=== PATIENT | male | born 1965 | race Caucasian/White ===

== ENCOUNTER → 2017-11-16 17:36 | Outpatient (CLI) | payer SELFPAY ==
[2017-11-16 17:50] LABS: Absolute Lymphocyte Count 3.72 X10^3/ul (0.83-4.51); Absolute Neutrophil Count 7.7 X10^3/uL (2.0-7.7); Basophil# 0.04 X10^3/uL; Basophil% 0.3 % (0-1); Eosinophil# 0.59 X10^3/uL; Eosinophils% 4.5 % (0-5); Hematocrit 49.7 % (40-54); Hemoglobin 16.7 g/dl (13.0-16.5); Lymphocyte # 3.72 X10^3/ul (4.0); Lymphocyte % 28.1 % (19-41); Mean Corp Hgb Conc 33.6 g/gl (32-36); Mean Corpuscular Hgb 30.3 pg (27.0-32.0); Mean Platelet Vol. 10.7 fl (6.2-12.0); Monocyte# 1.15 X10^3/uL; Monocyte% 8.7 % (0-10); Neutrophil % 58.1 % (47-70); Platelet Count 264 K/mm3 (150-450); RBC Distribution Width CV 13.7 % (11.6-14.6); RBC Distribution Width SD 44.6 fl (35.1-43.9); Red Blood Count 5.52 M/mm3 (4.6-6.2); White Blood Count 13.2 K/mm3 (4.4-11.0)
[2017-11-16 17:55] LABS: POSITIVE COUNT NO; POSITIVE DIFFERENTIAL NO; POSITIVE MORPHOLOGY NO
[2017-11-16 18:43] LABS: AST(SGOT) 45 U/L (15-37); Alanine Aminotransfer ALT/SGPT 60 U/L (16-61); Albumin, Serum 3.8 g/dL (3.2-5.0); Alkaline Phosphatase 53 U/L (45-117); Anion Gap 6 (5-15); BUN 17 mg/dL (7-18); BUN/Creat Ratio 16.7 RATIO (10-20); Calcium,Total 9.1 mg/dL (8.5-10.1); Chloride 102 mmol/L (98-107); Creatinine, Serum 1.02 mg/dL (0.70-1.30); EST Glomerular Filtration Rate 81 mL/min (>60); Est Glom Filt Rate - Afr Amer 98 mL/min (>60); Globulin 3.8 g/dL (2.2-4.2); Glucose 107 mg/dL (74-106); Potassium 3.3 mmol/L (3.5-5.1); Protein, Total 7.6 g/dL (6.4-8.2); Sodium Level 141 mmol/L (136-145); Thyroid Stim Hormone (TSH) 5.43 uIU/mL (0.358-3.74)
[2017-11-18 11:17] LABS: Hep C Antibodies <0.1 s/co ratio (0.0-0.9)
== END ==
PROVIDERS: Family Provider Family Medicine Geriatric Medicine; PCP Family Medicine Geriatric Medicine; Visit Provider Family Medicine Geriatric Medicine
DX: I10 Essential (primary) hypertension (principal); Z13.89 Encounter for screening for other disorder
CPT/HCPCS: 36415; 80053; 84443; 85025; 86803

== ENCOUNTER → 2018-06-01 16:26 | Outpatient (CLI) | payer SELFPAY ==
[2018-06-01 18:09] LABS: Hematocrit 47.9 % (40-54); Hemoglobin 16.3 g/dl (13.0-16.5); Mean Corpuscular Volume 90.5 fL (80-94); Red Blood Count 5.29 M/mm3 (4.6-6.2); White Blood Count 12.3 K/mm3 (4.4-11.0)
[2018-06-01 18:10] LABS: Absolute Lymphocyte Count 3.89 X10^3/ul (0.83-4.51); Absolute Neutrophil Count 6.5 X10^3/uL (2.0-7.7); Basophil# 0.04 X10^3/uL; Basophil% 0.3 % (0-1); Eosinophil# 0.69 X10^3/uL; Eosinophils% 5.6 % (0-5); Lymphocyte # 3.89 X10^3/ul (4.0); Lymphocyte % 31.6 % (19-41); Mean Corpuscular Hgb 30.8 pg (27.0-32.0); Mean Platelet Vol. 11.5 fl (6.2-12.0); Monocyte# 1.13 X10^3/uL; Monocyte% 9.2 % (0-10); Neutrophil # 6.52 X10^3/uL (2.7-7.7); POSITIVE COUNT NO; POSITIVE DIFFERENTIAL NO; POSITIVE MORPHOLOGY NO; Platelet Count 291 K/mm3 (150-450); RBC Distribution Width SD 46.5 fl (35.1-43.9)
[2018-06-01 18:48] LABS: AST(SGOT) 47 U/L (15-37); Alanine Aminotransfer ALT/SGPT 72 U/L (16-61); Albumin, Serum 3.6 g/dL (3.2-5.0); Alkaline Phosphatase 59 U/L (45-117); Anion Gap 9 (5-15); BUN 18 mg/dL (7-18); BUN/Creat Ratio 15.5 RATIO (10-20); Calcium,Total 9.2 mg/dL (8.5-10.1); Chloride 100 mmol/L (98-107); Creatinine, Serum 1.16 mg/dL (0.70-1.30); EST Glomerular Filtration Rate 69 mL/min (>60); Est Glom Filt Rate - Afr Amer 84 mL/min (>60); Globulin 3.6 g/dL (2.2-4.2); Glucose 162 mg/dL (74-106); Potassium 3.1 mmol/L (3.5-5.1); Protein, Total 7.2 g/dL (6.4-8.2); Sodium Level 141 mmol/L (136-145)
[2018-06-02 09:42] LABS: Hemoglobin A1c 6.8 % (4.2-6.3)
== END ==
PROVIDERS: Family Provider Family Medicine Geriatric Medicine; PCP Family Medicine Geriatric Medicine; Visit Provider Family Medicine Geriatric Medicine
DX: I10 Essential (primary) hypertension (principal); E16.2 Hypoglycemia, unspecified
CPT/HCPCS: 36415; 80053; 83036; 84443; 85025

== ENCOUNTER → 2019-01-17 10:02 | Outpatient (CLI) | payer SELFPAY ==
[2019-01-17 17:10] LABS: Absolute Lymphocyte Count 3.28 X10^3/ul (0.83-4.51); Absolute Neutrophil Count 7.3 X10^3/uL (2.0-7.7); Basophil# 0.03 X10^3/uL; Basophil% 0.2 % (0-1); Eosinophil# 0.54 X10^3/uL; Eosinophils% 4.4 % (0-5); Hematocrit 46.5 % (40-54); Hemoglobin 15.8 g/dl (13.0-16.5); Lymphocyte # 3.28 X10^3/ul (4.0); Lymphocyte % 26.9 % (19-41); Mean Corpuscular Hgb 30.4 pg (27.0-32.0); Mean Corpuscular Volume 89.6 fL (80-94); Mean Platelet Vol. 10.4 fl (6.2-12.0); Monocyte# 1.03 X10^3/uL; Monocyte% 8.5 % (0-10); Neutrophil # 7.27 X10^3/uL (2.7-7.7); Neutrophil % 59.8 % (47-70); Platelet Count 340 K/mm3 (150-450); RBC Distribution Width CV 13.8 % (11.6-14.6); Red Blood Count 5.19 M/mm3 (4.6-6.2); White Blood Count 12.2 K/mm3 (4.4-11.0)
[2019-01-17 17:17] LABS: POSITIVE COUNT NO; POSITIVE DIFFERENTIAL NO; POSITIVE MORPHOLOGY NO
[2019-01-17 17:52] LABS: ALB/GLOB Ratio 0.9 RATIO (0.9-2.4); AST(SGOT) 34 U/L (15-37); Alanine Aminotransfer ALT/SGPT 54 U/L (16-61); Albumin, Serum 3.5 g/dL (3.2-5.0); Alkaline Phosphatase 61 U/L (45-117); Anion Gap 3 (5-15); BUN 14 mg/dL (7-18); BUN/Creat Ratio 14.2 RATIO (10-20); Calcium,Total 9.2 mg/dL (8.5-10.1); Chloride 103 mmol/L (98-107); Creatinine, Serum 0.98 mg/dL (0.70-1.30); EST Glomerular Filtration Rate 84 mL/min (>60); Est Glom Filt Rate - Afr Amer 101 mL/min (>60); Globulin 3.8 g/dL (2.2-4.2); Glucose 138 mg/dL (74-106); Protein, Total 7.3 g/dL (6.4-8.2); Sodium Level 139 mmol/L (136-145); Thyroid Stim Hormone (TSH) 2.46 uIU/mL (0.358-3.74)
== END ==
PROVIDERS: Family Provider Family Medicine Geriatric Medicine; PCP Family Medicine Geriatric Medicine; Visit Provider Family Medicine Geriatric Medicine
DX: I10 Essential (primary) hypertension (principal)
CPT/HCPCS: 36415; 80053; 84443; 85025

== ENCOUNTER 2019-03-16 19:15 | Emergency (ER) | payer SELFPAY ==
[2019-03-16 19:16] VITALS: BP 163/108; PULSE 75; RESP 16; TEMP 36.6; O2SAT 98; BMI 34.7
[2019-03-16 20:19] LABS: Bacteria 0 SEEN /hpf (None Seen); Mucous, Urine 0 SEEN /hpf (<or=2+); Squamous Epithelial Cells - UA 0 SEEN /hpf (0-5)
--- NOTE | 2019-03-16 20:23 | ED.VIS.GEN ---
History of Present Illness Chief Complaint: Complaint Informant: Patient, Significant Other Onset: Today Context: Sudden Onset Timing: Continuous Quality: Pain and inability to urinate Location: Suprapubic Current Severity: Moderate Maximum Severity: Severe Worsened by: Palpation Relieved by: Nothing Associated Symptoms: Inability to urinate x8 hours Narrative: Patient is a 53-year-old male presents with inability to urinate for the past 8 hours. He had problems in the past with stream. He denies history of BPH. He denies hematuria. He states he had slight discomfort this morning. He denies fever, chills night sweats. He denies nausea, vomiting diarrhea. He does have history of hypertension. He denies prior history. Prior similar symptoms: No Recent Illness/Hospitalization: No - Past Medical History (1) History of hypertension Status: Acute (2) History of hypercholesterolemia Status: Acute Past Medical History - Allergies and Home Meds Allergies/Adverse Reactions: Allergies No Known Allergies Allergy (Verified 03/16/19 19:18) Primary Care Physician: Florencio Leger Chi, MD [Primary Care Provider] - Prior records reviewed: Yes Surgical History: no surgical history Lives: Spouse/ Significant Other Smoking Status: Unknown if ever smoked Alcohol: None Drugs: None Review of Systems General: Denies: Chills, Fever, Malaise, Sweats Cardiovascular: Denies: Chest pain, Palpitations Respiratory: Denies: Dyspnea, Cough, Dyspnea on exertion Gastrointestinal: Reports: Abdominal pain. Denies: Nausea, Vomiting, Diarrhea, Constipation, Melena, Hematochezia, -, - Genitourinary: Reports: Dysuria. Denies: Hematuria, Frequency Musculoskeletal: Denies: Myalgias, Arthralgias, Neck pain, Back pain, Swelling, Extremity Pain, -, - Skin: Denies: Rash, Wounds Hematologic: Denies: Easy bruising, Easy bleeding, Lymphadenopathy, -, - Allergy: Denies: Uticaria, Swelling of the mouth, Swelling of the tongue, -, - Physical Exam Vital Signs/Narrative: Vital Signs Temp Pulse Resp BP Pulse Ox 03/16/19 19:16 97.8 F 75 16 163/108 H 98 Inital Vital Signs reviewed: Yes General: Well nourished, Well developed, Acute Distress Head: Normocephalic, Atraumatic Eyes: Perrl, EOMI. Negative for: Pale conjunctiva, Scleral icterus, - ENT: Moist mucous membranes, No rhinorrhea Neck: Supple, Nontender Cardiovascular: Regular rate, Regular rhythm, No murmurs Respiratory: No distress, CTA bilaterally, Chest nontender Abdomen: Soft, Nondistended, Normal bowel sounds, Tender, Mass - Distended palpable urinary bladder. Negative for: No masses Back: Nontender, Normal Inspection Extremities: Nontender, No edema Skin: Normal color, No rash, No Trauma. Negative for: Cyanosis, Diaphoresis, Jaundice Neurological: Alert, Oriented x3, Cranial nerves II-XII grossly intact, Normal Strength, Normal Sensation Psychological: Normal affect, Normal Mood Diagnostic/Tx/Re-eval Laboratory Results 03/16/19 03/16/19 19:50 20:05 Sodium 142 Potassium 3.4 L Chloride 103 Carbon Dioxide 31.0 Anion Gap 8 BUN 14 Creatinine 1.07 Estim Creat Clear Calc 80.54 Est GFR (MDRD) Af Amer 92 Est GFR (MDRD) Non-Af 76 BUN/Creatinine Ratio 13.1 Glucose 125 H Calcium 9.4 Urine Color Yellow Urine Clarity Clear Urine pH 7.0 Ur Specific [place] 1.010 Urine Protein 100 H Urine Glucose (UA) Normal Urine Ketones Negative Urine Occult Blood Negative Urine Nitrite Negative Urine Bilirubin Negative Urine Urobilinogen Normal Ur Leukocyte Esterase Negative Urine RBC 0-5 SEEN Urine WBC 0-5 SEEN Ur Squamous Epith Cells 0 SEEN Urine Bacteria 0 SEEN Urine Mucus 0 SEEN - Medical Decision Making Patient has a distended bladder. Crane was placed with significant amount of urine. Basic metabolic panel was obtained to assess for renal injury. UA was obtained to rule out infection since he complained of dysuria this morning. No evidence of acute kidney injury. Urine is unremarkable. He was discharged with leg bag, prescription for Flomax and referral to urology. ED Disposition - Plan for ED Patient: Disposition: Home or Assisted Living Diagnosis: Acute urinary retention Instructions: URINARY RETENTION, Male Prescriptions: Tamsulosin HCl [Flomax] 0.4 mg PO QHS #30 cap.er.24h Prescription Printed Referrals: Florencio Leger Chi, MD [Primary Care Provider] - Feroz Dillon MD [STAFF PHYSICIAN] - 3-5 Days
[2019-03-16 20:24] LABS: Color, Urine Yellow (Yellow); Glucose, Dipstick Normal (Normal); Ketone-Dipstick Negative (Negative); Leukocyte Esterase-Dipstick Negative /ul (Negative); Nitrite-Dipstick Negative (Negative); Occult Blood-Urine Negative /ul (Negative); Protein-Dipstick 100 mg/dl (Negative); Urine Bilirubin Dipstick Negative (Negative); Urine Clarity Clear (Clear); Urine Urobilinogen Normal (Normal)
[2019-03-16 20:26] LABS: Anion Gap 8 (5-15); BUN 14 mg/dL (7-18); BUN/Creat Ratio 13.1 RATIO (10-20); Calcium,Total 9.4 mg/dL (8.5-10.1); Chloride 103 mmol/L (98-107); Creatinine, Serum 1.07 mg/dL (0.70-1.30); EST Glomerular Filtration Rate 76 mL/min (>60); Est Glom Filt Rate - Afr Amer 92 mL/min (>60); Estimated Creatinine Clearance 80.54 ml/min; Glucose 125 mg/dL (74-106); Potassium 3.4 mmol/L (3.5-5.1); Sodium Level 142 mmol/L (136-145)
[2019-03-16 20:32] LABS: Red Blood Cells-Urine 0-5 SEEN /hpf (0-5); White Blood Cells 0-5 SEEN /hpf (0-5)
[2019-03-16 22:00] VITALS: BP 145/98; PULSE 77; RESP 16; O2SAT 94
[2019-03-16 22:06] VITALS: BP 145/98; PULSE 77; RESP 16; O2SAT 94
== END 2019-03-16 22:18 | disposition home or self-care (01) ==
PROVIDERS: Emergency Provider Emergency Medicine; Family Provider Family Medicine Geriatric Medicine; PCP Family Medicine Geriatric Medicine
DX: R33.9 Retention of urine, unspecified (principal); N32.89 Other specified disorders of bladder; I10 Essential (primary) hypertension; E78.00 Pure hypercholesterolemia, unspecified
CPT/HCPCS: 51702; 80048; 81001; 99283; A4216

== ENCOUNTER → 2019-03-19 14:00 | Outpatient (CLI) | payer SELFPAY ==
[2019-03-16 19:16] VITALS: BMI 34.7
== END ==
PROVIDERS: Family Provider Family Medicine Geriatric Medicine; PCP Family Medicine Geriatric Medicine; Referring Provider Urology; Visit Provider Urology
DX: N40.1 Benign prostatic hyperplasia with lower urinary tract symptoms (principal); R33.9 Retention of urine, unspecified
CPT/HCPCS: 36415; 84153

== ENCOUNTER 2019-04-07 20:25 | Emergency (ER) | payer SELFPAY ==
[2019-04-04 09:08] VITALS: BMI 34.3
[2019-04-07 20:26] VITALS: BP 163/75; PULSE 113; RESP 18; TEMP 37.3; O2SAT 99; BMI 33.9
[2019-04-07 20:45] VITALS: BP 163/75; PULSE 113; RESP 18; TEMP 37.3; O2SAT 99
[2019-04-07] MEDS: Phenazopyridine 95 MG Tablet 190 MG PO (20:53)
[2019-04-07 21:18] LABS: Color, Urine Yellow (Yellow); Glucose, Dipstick Normal (Normal); Ketone-Dipstick Negative (Negative); Leukocyte Esterase-Dipstick 500 /ul (Negative); Nitrite-Dipstick Positive (Negative); Occult Blood-Urine 150 /ul (Negative); Protein-Dipstick 30 mg/dl (Negative); Specific Gravity, Urine 1.015 (1.002-1.030); Urine Bilirubin Dipstick Negative (Negative); Urine Clarity Clear (Clear); Urine Urobilinogen 1 mg/dl (Normal); Urine pH 6.5 (5.0 - 8.0)
[2019-04-07 21:24] LABS: White Blood Cells >100 SEEN /hpf (0-5)
[2019-04-07 21:28] LABS: Red Blood Cells-Urine 25-50 SEEN /hpf (0-5)
[2019-04-07 21:29] LABS: Bacteria 2+ /hpf (None Seen); Mucous, Urine RARE /hpf (<or=2+); Squamous Epithelial Cells - UA 0-5 SEEN /hpf (0-5)
--- NOTE | 2019-04-07 21:45 | ED.VISSUMM ---
- ER Visit Summary Date of Service: 04/07/19 Chief Complaint: [Penile pain] History of Present Illness: The patient is a 53 M [resents to the emergency department with discomfort in his penis started yesterday. Patient feels like when he has to void through his Crane catheter there is a sharp pain and burning associated with it. Patient had an indwelling Crane catheter since March 16 for urinary retention. Patient is scheduled next week to have a TURP with . Patient at times is noted small amount of blood at the tip of the penis. He denies any fever. Denies nausea or vomiting. Currently he has no pain. Medical history includes hypertension and high cholesterol as well as hypothyroidism.] Physical Examination: [HEENT-PERRLA, EOMI. Cranial nerves II through XII grossly intact. TMs clear. Mucous membranes moist. No adenopathy. Cardiovascular-regular rate and rhythm without murmur or ectopy Lungs-clear to auscultation, chest wall stable without crepitus or subcu emphysema Abdomen-normoactive bowel sounds, soft, nontender, no rebound or rigidity, no peritoneal signs. exam-patient is a circumcised male with a Crane catheter in place. No evidence of erosion of the catheter into the urethral meatus. There is small amount of blood noted in his underwear but no blood noted coming from the urethral meatus at this time. Extremities-intact ?4, normal range of motion, normal pulses, atraumatic] Test Results: [Urinalysis obtained showed 500 leukocyte esterase as well as greater than 100 WBCs and 25-50 RBCs as well as +2 bacteria.] Emergency Department Course and Treatment: [Was medicated with Bactrim and Pyridium. Case was discussed with patient's urologist who asked that patient be treated with 7 days worth of Bactrim.] Treatment Plan: [Treat with Bactrim and Pyridium and have patient follow-up with his urologist. Advised to return if fever, vomiting, or conditions worsen anyway.] Disposition: [Discharged home stable condition.] Impression: [Urinary tract infection] This note was generated with Autotether[employer] software. It may contain incorrect words, spelling, and punctuation that were not noted in review of the chart prior to signing ED Disposition - Plan for ED Patient: Referrals: Florencio Leger Chi, MD [Primary Care Provider] -
--- NOTE | 2019-04-07 21:48 | ED.DEP ---
ED Disposition - Plan for ED Patient: Instructions: Bladder Infection, Male (Adult) Prescriptions: Smz/Tmp Ds [Bactrim Ds] 1 tab PO BID #14 tab Prescription Printed Phenazopyridine HCl [Pyridium] 200 mg PO BID PRN PRN #10 tab PRN Reason: Pain Prescription Printed Referrals: Florencio Leger Chi, MD [Primary Care Provider] - Feroz Dillon MD [STAFF PHYSICIAN] - 3-5 Days
[2019-04-07 22:01] VITALS: BP 157/97; PULSE 100; RESP 18; O2SAT 96
[2019-04-07] MEDS: Smz/Tmp Ds Tablet 1 TABLET PO (22:01)
== END 2019-04-07 22:03 | disposition home or self-care (01) ==
LOC: ED 20:49
PROVIDERS: Emergency Provider Emergency Medicine; Family Provider Family Medicine Geriatric Medicine; PCP Family Medicine Geriatric Medicine
DX: N39.0 Urinary tract infection, site not specified (principal); I10 Essential (primary) hypertension; E03.9 Hypothyroidism, unspecified; E78.00 Pure hypercholesterolemia, unspecified; Z72.0 Tobacco use
CPT/HCPCS: 81001; 87077; 87086; 87088; 87186; 99283

== ENCOUNTER 2019-04-11 08:04 | Day surgery (SDC) | payer SELFPAY ==
[2019-04-04 09:08] VITALS: BP 145/103; PULSE 79; RESP 16; TEMP 36.4; O2SAT 97; BMI 34.3
--- NOTE | 2019-04-04 09:16 | SDCEKG_ITS ---
Test Reason : Blood Pressure : / mmHG Vent. Rate : 073 BPM Atrial Rate : 073 BPM P-R Int : 212 ms QRS Dur : 096 ms QT Int : 388 ms P-R-T Axes : 042 -24 026 degrees QTc Int : 427 ms Sinus rhythm with 1st degree A-V block Otherwise normal ECG Confirmed by LA NENA ROY ([id number]), newspaper managing editor PEDRO BARRETO ([id number]) on 04/10/2019 10:16:28 AM Referred By: Feroz Dillon Confirmed By:LA NENA ROY
[2019-04-11] VITALS (12 sets, daily range): BP systolic 115–154; BP diastolic 74–104; PULSE 67–76; RESP 14–18; TEMP 36.3–37.2; O2SAT 92–99; BMI 34.3
--- NOTE | 2019-04-11 | IMM_PTH ---
PATIENT: STEPHANIE MOREL Jr. LOC: [facility] [place] U#:[id number] AGE/SX: 53/M ROOM: RE04/11/[address]: Dr. Feroz Dillon MD : 1965 BED: DIS: 04/12/2019 SPEC #: [id number] RECD: 04/13/19 11:24 STATUS: BRONWYN REQ #: [id number] DANIAL: 04/11/19 00:[address]: Feroz Dillon DEPT: IMMUNOHISTOCHEMISTRY RECD BY: Jordyn Hutchinson ENTERED: 04/13/19 11:26 SP TYPE: IMMUNO OTHR DR: Dr. Florencio Leger MD Tissues: A - Prostate, NOS B - PROSTATE BIOPSY Procedures: Synapto (add) CD56 (add) CHROMO (add) CK8 (add) 34BE12 (add) Pankeratin (initial) P40 (add) PHYSICIAN & INSTITUTION [place] [address] SPECIMEN INFORMATION: Tissue Source: A - Prostate chips, B - Prostate biopsy Clinical Info: Urinary retention, nodular prostate, elevated PSA Specimen Number: [id number] A9 & B CPT code: 33310 x2, 63789 x12 METHODOLOGY: Deparaffinized sections of prefer/formalin-fixed tissue or PAP/DQ stained slides are incubated with monoclonal/polyclonal antibodies/oligonucleotide probes. Localization is made via biotin free immunoperoxidase method. Appropriate controls are performed and reacted as expected. Results on target cell population are indicated in the following table: RESULTS: ANTIBODY / CLONE RESULT Block A9 AE1-3 (AE1/AE3/PCK26) positive CK8 (08vdorG94) positive P40 (BC28) negative 34BE12 (34BE12) negative Chromo (LK2H10) negative Synapto (polyclonal) negative CD56 (123C3.D5) negative Block B AE1-3 (AE1/AE3/PCK26) positive CK8 (06cmbyF33) positive P40 (BC28) negative 34BE12 (34BE12) negative Chromo (LK2H10) negative Synapto (polyclonal) negative CD56 (123C3.D5) negative These tests were developed and their performance characteristics determined by [facility]. They may not have been cleared or approved by the U.S. Food and Drug Administration. The FDA has determined that such clearance or approval is not necessary. INTERPRETATION: A. Prostate chips, TUR: Poorly differentiated prostatic adenocarcinoma. Negative for neuroendocrine differentiation. B. Prostate, biopsy: Poorly differentiated prostatic adenocarcinoma. Negative for neuroendocrine differentiation. SJ:lucius 04/13/19 Case has been reviewed in consultation with Dr. Cerda who concurs with the above diagnosis. IDC:AM
[2019-04-11 08:46] LABS: Bedside Glucose 144 mg/dL (70-110)
[2019-04-11] MEDS: Lactated Ringers 1,000 ML 100 ML IV ×2 (08:49→11:16)
--- NOTE | 2019-04-11 10:10 | PROS_PTH ---
PATIENT: STEPHANIE MOREL Jr. LOC: [facility] [place] U#:[id number] AGE/SX: 53/M ROOM: RE04/11/[address]: Dr. Feroz Dillon MD : 1965 BED: DIS: 04/12/2019 SPEC #: [id number] RECD: 04/11/19 14:27 STATUS: BRONWYN [place] #: [id number] DANIAL: 04/11/19 10:[address]: Feroz Dillon DEPT: SURGICAL PATHOLOGY RECD BY: Fabrizio Cid ENTERED: 04/11/19 14:55 SP TYPE: TURP OTHR DR: Dr. Florencio Leger MD Tissues: A - Prostate, NOS B - PROSTATE BIOPSY Procedures: Surgery Specimen Level IV HEADER OPERATION: Cysto, TUR prostate, Olympus, transrectal finger-guided prostate biopsy PRE-OP DIAGNOSIS: Retention of urine, nodular prostate with lower urinary tract symptoms; elevated prostate specific antigen TISSUE SUBMITTED: A - Prostate chips, B - Prostate biopsy MICROSCOPIC DIAGNOSIS A. Prostate chips, TUR: Prostatic adenocarcinoma. Benign prostatic hyperplasia predominantly stromal type. Diffuse moderate chronic inflammation and minimal acute inflammation. See cancer summary below. B. Prostate, core biopsy: Prostatic adenocarcinoma: Nakul grade: 5+5=10 Number of cores involved: 3/3 Proportion of tissue involved: ~30% Perineural invasion: Present, focal. Greatest tumor length: 1 cm Focal high-grade prostatic intraepithelial neoplasia (HGPIN). Diffuse moderate chronic inflammation. See comment. SJ:lucius 04/12/19 PROSTATE CANCER (TUR) SUMMARY: (Specimen A) Procedure - transurethral prostatic resection Specimen weight - 25.5 gm Histologic type - adenocarcinoma Histologic grade ([place] Pattern): Primary (predominant) pattern - 5 Secondary (worst remaining) pattern - 5 Total Nakul score - 10 Tumor Quantitation (TUR specimens): Proportion (%) of prostatic tissue involved by tumor - <5% Tumor incidental histologic findings with Nakul score 7 to 10 (cT1b). Number of positive chips - 5 Total number of chips - 500 Periprostatic fat invasion - not applicalble Seminal vesicle invasion - not applicable Lymph-Vascular invasion - not identified Perineural invasion - not identified Additional pathologic findings - benign prostatic hyperplasia, predominantly stromal type. - Diffuse moderate chronic inflammation and minimal acute inflammation. The above summary is in compliance with [employer] [place] (CAP) Cancer Protocols Checklist and [place] Joint Committee on Cancer (AJCC), Staging Manual, 8th Ed. COMMENT A & B. Immunohistochemistry ([id number]) supports the above diagnosis. Case has been reviewed in consultation with Dr. Cerda who concurs with the above diagnosis. IDC:AM MICROSCOPIC DESCRIPTION Slides are reviewed. GROSS DESCRIPTION A - Received is one container labeled with the patient's name and designated prostate chips. The specimen consists of multiple irregular fragments of pink-monroy, rubbery, soft tissue that in aggregate weigh 25.5 gm and measure in aggregate 7 x 7 x 3 cm. Foundation Engineer tissue is submitted in 12 cassettes. / SJ:lucius 04/11/19 The rest of the specimen is submitted in 12 more cassettes, -. / ROBERTO:lucius 04/12/19 B - Received in fixative is one container labeled with the patient's name and designated prostate biopsy. The specimen consists of three elongated fragments of light monroy-white soft tissue measuring 1 to 2 cm in length and 0.1 cm in diameter. The specimen is totally submitted in one cassette. / SJ:lucius 04/11/19 TC:0 CPT: 64185 x2 ADDENDUM ADDENDUM ADDENDUM ADDENDUM ADDENDUM ADDENDUM ADDENDUM ADDENDUM ADDENDUM ADDENDUM ADDENDUM ADDENDUM ADDENDUM ADDENDUM ADDENDUM ADDENDUM ADDENDUM ADDENDUM ADDENDUM ADDENDUM ADDENDUM 12/10/2021 09:54 ADDENDUM 12/10/2021 09:54 ADDENDUM 12/10/2021 09:54 ADDENDUM 12/10/2021 09:54 ADDENDUM 12/10/2021 09:54 [facility]PORT FROM [facility] RESULT SUMMARY: Abnormal IMMUNOTHERAPY BIOMARKERS: Tumor Mutation Zenda: Low (3.2 Mutations / MB) Microsatellite Instability: MSI Negative PERTINENT NEGATIVE RESULTS: The following genes are NEGATIVE for clinically relevant mutations. Mutational hotspots and surrounding exonic regions were interrogated for DNA level point mutations and indels (fusions not assayed). AR, ARID1A, ATR, BARD1, BRCA1, BRCA2, BRIP1, CDK12, CHEK1, CHEK2, EPCAM, JAF750J, FANCA, FANCL, GEN1, HOXB13, MLH1, MRE11A, MSH2, MSH6, MUTYH, NBN, NTRK1, PALB2, PMS2, EDE9K2H, PTEN, RAD51B, RAD51C, RAD51D, RAD54L, TERT PD-L1 ([employer]) IMMUNOHISTOCHEMICAL ANALYSIS FROM [employer] Test cancelled due to insufficient tumor cells. Please see complete report in e-chart or EMR
[2019-04-11] MEDS: Cefazolin 2 GM in 0.9% Normal Saline 100 ML IV (10:14)
--- NOTE | 2019-04-11 12:08 | DCINST_ITS ---
Discharge Diet: Light diet - advance as tolerated Discharge Activity: Return to Normal Activity, May not drive while taking narcotic pain medications. Call your doctor if your incision/area has: Continuous Slow Oozing, Sudden Increased Bleeding, Increased Pain/ Swelling, Increased Redness, Foul Smelling Discharge, Swelling at the incision site Call your doctor if you observe: Fever of 101 or Higher Suture Line Care: Avoid Pulling/Pushing, Avoid Pinching/Bending Instructions: Transurethral Resection of the Prostate (TURP): Home Recovery Allergies/Adverse Reactions: Allergies No Known Allergies Allergy (Verified 04/11/19 08:22) Medications to take at Discharge Tamsulosin HCl [Flomax] 0.4 mg PO QHS #30 cap.er.24h 03/16/19 Aspirin [Aspir 81] 81 mg PO DAILY 04/04/19 Atenolol [Tenormin (Beta Manpreet)] 50 mg PO DAILY 04/04/19 Atorvastatin Calcium [Lipitor] 40 mg PO QHS 04/04/19 Chlorthalidone 25 mg PO DAILY 04/04/19 Levothyroxine Sodium [Synthroid] 50 mcg PO QHS 04/04/19 Multivitamin [Multiple Vitamins] 1 ea PO QHS 04/04/19 Potassium Chloride [K-Dur] 20 meq PO QHS 04/04/19 Phenazopyridine HCl [Pyridium] 200 mg PO BID PRN PRN #10 tab 04/07/19 Smz/Tmp Ds [Bactrim Ds] 1 tab PO BID #14 tab 04/07/19 Ciprofloxacin [Cipro] 500 mg PO BID #14 tab 04/11/19 Hydrocodone/Acetaminophen [[place] 5-325 Tablet] 1 ea PO Q4H PRN PRN #14 tab 04/11/19 The following prescriptions were given: Ciprofloxacin [Cipro] 500 mg PO BID #14 tab Prescription Printed Hydrocodone/Acetaminophen [[place] 5-325 Tablet] 1 ea PO Q4H PRN PRN #14 tab PRN Reason: Pain Prescription Printed Orders to be completed after discharge: Hemoglobin A1c Time Frame: 04/04/19, Facility: [facility] [place], Location: Laboratory Primary Care Physician: Florencio Leger Chi, MD [Primary Care Provider] - Test Results: Test results from this visit will be discussed in further detail at your follow- up appointment, if applicable. Please Follow Up With: Feroz Dillon MD When: in 2 weeks, please call to make an appointment.
--- NOTE | 2019-04-11 12:12 | PCM.OPRPT ---
Report of Operation Date of Procedure: 04/11/19 Pre-Operative Diagnosis: BPH with urinary retention prostate nodule Post-Operative Diagnosis: The same Surgery/Procedure Performed:: Transurethral resection of the prostate, transrectal prostate biopsy Description of Surgical Findings:: 53-year-old male who developed urinary retention on examination is a firm prostate concerning for cancer he is not been able to urinate on his own despite voiding trial the medical therapy so today we will proceed with a transurethral resection of the prostate and also do a prostate biopsy 53-year-old male taken back to the operating room after smooth induction of anesthesia he was placed in dorsolithotomy position, penis and testicles are prepped and draped in usual sterile fashion, I first looked in with a 21 Romanian rigid cystourethroscope found the entire length of the urethra is normal no scar tissues or abnormalities, sphincter was intact, verumontanum was identified, he had bilateral hypertrophy and a somewhat of median lobe, he did have bilateral hypertrophy, I then switched over to the 26 Romanian continuous flow resectoscope I first identified the right and left ureteral orifice I first resected the median lobe and made sure that the ureteral orifices were uninjured which they were not identified after resection they were clearly uninvolved purely I then resected back to the verumontanum marked out my attention edges of the resection of the ureter all the way up circumferentially and the limit my resection to down to the room and the sphincter I then started resecting the obstructive tissue on the left side appeared to be a little bit of tissue initially but then as a Resecting I Got More and More Tissue Ended up Doing a Significant Resection on the Left Side. I Then Went to the Right Side and Continue with the Resection of the Right Side I Then Very Carefully Resected the Roof of the prostate. I then took out the 26 Romanian continuous-flow resectoscope I put into just a 24 Romanian noncontinuous flow resectoscope in order to resect the apical tissue at the resecting this there was some apical tissue draping down from the top is still causing obstruction I resected this and finally I resected a nice wide open channel to the flow test had a really nice flow sphincter was intact. I then did a flow test had a wide open flow looked at the sphincter the sphincter was intact all the chips were Ellik out of the bladder but it three-way catheter in the bladder and continuous irrigation the urine was nice and clear. I then double gloved and did a digital exam he had a very firm rockhard prostate we did 3 biopsies of the prostate and these were sent off as a separate biopsy this of his finger guided prostate biopsy using a biopsy gun. Patient anesthetic is being reversed taken back to PACU in good condition. Type of Anesthesia:: General Drains: 3 way swain - Admit VTE Documentation VTE Present on Admission: No VTE Mechan Device Prophylaxis: SCD's
[2019-04-11 12:40] LABS: Bedside Glucose 136 mg/dL (70-110)
[2019-04-11] MEDS: 0.9% Normal Saline 1,000 ML 75 ML IV (14:57)
[2019-04-11] MEDS: Ciprofloxacin 400 MG/200 ML BAG 200 MG IV (18:31)
[2019-04-11] MEDS: oxyCODONE 5 MG Tablet PO (21:22)
[2019-04-12 03:12] VITALS: BP 115/78; PULSE 68; RESP 18; TEMP 36.6; O2SAT 97
[2019-04-12] MEDS: 0.9% Normal Saline 1,000 ML 75 ML IV (05:29)
[2019-04-12] MEDS: Ciprofloxacin 400 MG/200 ML BAG 200 MG IV (05:30)
[2019-04-12] MEDS: oxyCODONE 5 MG Tablet PO (05:35)
[2019-04-12 07:45] VITALS: BP 115/84; PULSE 70; RESP 16; TEMP 36.7; O2SAT 98
[2019-04-12] MEDS: Atenolol 50 MG Tablet PO (08:07)
[2019-04-12] MEDS: Tamsulosin HCl 0.4 MG Capsule PO (08:07)
[2019-04-12] MEDS: Pantoprazole Sodium 40 MG Tablet PO (08:07)
[2019-04-12] MEDS: Levothyroxine 50 MCG Tablet PO (08:10)
[2019-04-12] MEDS: Docusate Sodium 100 MG Capsule PO (08:11)
[2019-04-12] MEDS: Multivitamins,Therapeutic Tablet 1 TABLET PO (08:11)
[2019-04-12] MEDS: Chlorthalidone 50 MG Tablet 25 MG PO (12:42)
[2019-04-12 14:30] VITALS: BP 165/92; PULSE 76; RESP 16; TEMP 36.6; O2SAT 97
== END 2019-04-12 14:47 | disposition home or self-care (01) ==
LOC: SDC 08:05 → AC 08:23 → MS3 11:18
PROVIDERS: Family Provider Family Medicine Geriatric Medicine; PCP Family Medicine Geriatric Medicine; Referring Provider Urology; Visit Provider Urology
PROC: (CPT 52630; principal; 2019-04-11 10:00)
DX: C61 Malignant neoplasm of prostate (principal); N40.1 Benign prostatic hyperplasia with lower urinary tract symptoms; N40.2 Nodular prostate without lower urinary tract symptoms; R33.8 Other retention of urine; I10 Essential (primary) hypertension; E03.9 Hypothyroidism, unspecified; E11.9 Type 2 diabetes mellitus without complications; F32.9 Major depressive disorder, single episode, unspecified; F17.210 Nicotine dependence, cigarettes, uncomplicated
CPT/HCPCS: 00914; 52630; 36415; 82962; 83036; 88305; 88341; 88342; 93005; 94762; 99406; J7030; J7120; J0744; J2405

== ENCOUNTER → 2019-04-23 13:52 | Outpatient (CLI) | payer SELFPAY ==
[2019-04-11 14:15] VITALS: BMI 34.3
[2019-04-23 17:12] LABS: Absolute Lymphocyte Count 3.39 X10^3/uL (0.83-4.51); Absolute Neutrophil Count 7.6 X10^3/uL (2.0-7.7); Basophil# 0.09 X10^3/uL; Basophil% 0.7 % (0-1); Eosinophil# 0.85 X10^3/uL; Eosinophils% 6.5 % (0-5); Hematocrit 41.9 % (40-54); Hemoglobin 13.7 g/dL (13.0-16.5); Lymphocyte # 3.39 X10^3/ul (4.0); Mean Corp Hgb Conc 32.7 g/dL (32-36); Mean Corpuscular Volume 88.6 fL (80-94); Mean Platelet Vol. 10.2 fl (6.2-12.0); Monocyte# 1.07 X10^3/uL; Monocyte% 8.2 % (0-10); NRBC Flagged by Analyzer 0 % (0-5); Neutrophil # 7.57 X10^3/uL (2.7-7.7); Neutrophil % 58.1 % (47-70); Platelet Count 405 K/mm3 (150-450); RBC Distribution Width CV 13.7 % (11.6-14.6); RBC Distribution Width SD 44.1 fl (35.1-43.9); Red Blood Count 4.73 M/mm3 (4.6-6.2)
[2019-04-23 17:40] LABS: ALB/GLOB Ratio 0.8 RATIO (0.9-2.4); AST(SGOT) 20 U/L (15-37); Alanine Aminotransfer ALT/SGPT 36 U/L (16-61); Albumin, Serum 3.2 g/dL (3.2-5.0); Alkaline Phosphatase 88 U/L (45-117); Anion Gap 8 (5-15); BUN 11 mg/dL (7-18); BUN/Creat Ratio 12.4 RATIO (10-20); Calcium,Total 9.1 mg/dL (8.5-10.1); Chloride 103 mmol/L (98-107); Creatinine, Serum 0.89 mg/dL (0.70-1.30); EST Glomerular Filtration Rate 94 mL/min (>60); Est Glom Filt Rate - Afr Amer 114 mL/min (>60); Globulin 4.1 g/dL (2.2-4.2); Glucose 122 mg/dL (74-106); Potassium 3.1 mmol/L (3.5-5.1); Protein, Total 7.3 g/dL (6.4-8.2); Sodium Level 144 mmol/L (136-145); Thyroid Stim Hormone (TSH) 2.91 uIU/mL (0.358-3.74)
== END ==
PROVIDERS: Family Provider Family Medicine Geriatric Medicine; PCP Family Medicine Geriatric Medicine; Visit Provider Family Medicine Geriatric Medicine
DX: I10 Essential (primary) hypertension (principal); E11.65 Type 2 diabetes mellitus with hyperglycemia
CPT/HCPCS: 36415; 80053; 84443; 85025

== ENCOUNTER → 2019-04-26 10:18 | Outpatient (CLI) | payer SELFPAY ==
[2019-04-24 14:05] VITALS: BMI 34.0
--- NOTE | 2019-04-26 10:22 | NM_ITS ---
CLINICAL: 54-year-old male with reported history of carcinoma of the prostate. WHOLE BODY 99m Tc MDP RADIONUCLIDE BONE SCINTIGRAPHY COMPARISON: None available FINDINGS: Following the intravenous administration of 25.0 mCi of 99m Tc MDP, whole body bone images reveal: 1. Increased radiopharmaceutical concentration is identified in the acromioclavicular compartments of both shoulders, seventh cervical vertebra posteriorly in the midline, fifth lumbar vertebra posteriorly on the right, the visualized right wrist, bilateral knee and ankle articulations, right-left forefoot, pubic symphysis. 2. The remaining skeletal structures are scintigraphically unremarkable with normal-appearing renal images and urinary bladder activity identified. Enhanced tracer concentration is defined in the right lacrimal bone, the left maxillary, bilateral mandible most consistent with periostitis. NM/Bone Scan Whole Body IMPRESSION: 1. The increased radiopharmaceutical concentration identified in the bilateral shoulders, cervical and lumbar spine, right wrist, bilateral knees, right and left ankles, forefoot bilaterally and pubic symphysis is most consistent with degenerative arthritis. Plain film radiography correlation may be of benefit in the region of the pubic symphysis. 2. There is no definitive typical scintigraphic evidence of diffuse skeletal metastatic disease on the current examination. Electronically Signed: Ken Chavarria DO at 10:52 EDT Tel , Service support ,
== END ==
PROVIDERS: Family Provider Family Medicine Geriatric Medicine; PCP Family Medicine Geriatric Medicine; Referring Provider Internal Medicine Medical Oncology; Visit Provider Internal Medicine Medical Oncology
DX: C61 Malignant neoplasm of prostate (principal)
CPT/HCPCS: 78306

== ENCOUNTER → 2019-05-01 08:13 | Outpatient (CLI) | payer SELFPAY ==
[2019-04-24 14:05] VITALS: BMI 34.0
--- NOTE | 2019-05-01 08:14 | CT_ITS ---
HISTORY: PROSTATE CANCER-NEW DIAGNOSIS, TURP PROCEDURE TECHNIQUE: Helically acquired images were obtained of the abdomen and pelvis following the intravenous administration of 100 ml of Readi-CAT Tamp;amp; 100mL Isovue-300 Iodinated contrast. Contiguous helical images were obtained from above the kidneys to below the urinary bladder. 2D reformats. Oral contrast was administered. A radiation dose optimization technique was used for this scan. COMPARISON: Bone scan from April 26, 2019. The CT scan of the chest was performed 6 minutes earlier FINDINGS: # of images incl. paperwork: [phone] LUNG BASES: Clear. CT abdomen: Degenerative disc disease and facet arthropathy at the lower lumbar spine. Small focal sclerotic lesion within the right iliac wing above the right acetabulum measures 12 mm. No lesion is perceived within this region on the bone scan. There is some irregular sclerosis and expansion of bone on the right side of the pubic symphysis mostly within the right inferior pubic ramus. Some subcortical cystic degenerative change is also present within the right side of the pubic symphysis. In retrospect, this area is intense on the bone scan. The gallbladder is distended with many gallstones.. Within the posterior segment of the right hepatic lobe there is a well-defined 19 mm lesion. It demonstrates some enhancement centrally and on one wall. It is slightly hyperdense, denser than blood pool, on the delayed images. On the CT scan of the chest, which was performed at the same contrast bolus but slightly earlier, there may be calcific but is considered some peripheral nodular enhancement. The sagittal 2-D reformats suggest this peripheral nodular enhancement. This likely represents a benign hemangioma. Metastatic prostate cancer to the liver is considered less likely. The spleen, pancreas, and adrenal glands, are normal. The kidneys are normal. After a delay both kidneys excrete contrast into nondilated systems. Periaortic adenopathy is present. Iliac chain adenopathy is present.. The aorta is tortuous without aneurysm or dissection. CT pelvis: Trace pelvic ascites is present. The the prostate gland is heterogeneous and enlarged indenting into the posterior inferior aspect of the urinary bladder. The appendix is normal. Series 3 image 84. The bladder is decompressed with a thickened wall with inflamed adjacent fat, left greater than right. Ingested oral contrast is present into the rectum. Bowel gas pattern is normal CT/Abdomen/Pelvis WITH Contrast IMPRESSION: Heterogeneous enlarged prostate gland consistent with diagnosis of prostate malignancy. Metastatic adenopathy throughout the pelvis and along the aorta. Expansile sclerosis and heterogeneity of the pubic symphysis and into the anterior aspect of the right inferior pubic ramus may represent metastatic disease. Small focal lesion within the right iliac wing just above the right acetabular roof is likely a benign bone island and not a prostate metastasis. 19 mm lesion within the posterior segment of the right hepatic lobe is likely a benign hemangioma. I cannot make the histopathologic diagnosis based on imaging characteristics from this CT. The possibility of a prostate metastasis must remain within the differential. Distended gallbladder with many calcified gallstones some of which may be in the gallbladder neck. If the patient has symptoms in the right upper quadrant, consider acute cholecystitis. Induration within the pelvis about the bladder that may be indicative of cystitis. Some of this extends out laterally to the iliac chain adenopathy. Some of this induration could be related to the adenopathy of the metastatic disease. Individualized dose optimization techniques were used for this CT. at 2313 Reported and signed by: Emery Hanna MD Electronically Signed: Emery Hanna MD at 23:12 EDT Tel , Service support ,
--- NOTE | 2019-05-01 08:14 | CT_ITS ---
HISTORY: PROSTATE CANCER-NEW DIAGNOSIS, TURP PROCEDURE TECHNIQUE: Helically acquired images were obtained of the chest following the intravenous administration of 100 ml of Isovue 300 Iodinated contrast. as per pulmonary angiogram protocol with 2D MIP reconstructions. A radiation dose optimization technique was used for this scan. COMPARISON: Nuclear medicine bone scan study from April 26, 2019 FINDINGS: # of images incl. paperwork: [phone] Lungs are clear but for trace basilar atelectasis. No effusions. Within the thoracic spinebony alignment is normal. Vertebral body height is normal. Facets are well aligned. No rib lesions are perceived. Heart is not enlarged. Thoracic aorta is normal. No aneurysms, stenoses, dissections, nor occlusions. No axillary or mediastinal adenopathy. Although no pulmonary emboli are perceived, the timing of this contrast bolus is not optimal for a significant negative predictive value to exclude pulmonary embolus. Visualized portions of the upper abdomen are without identified acute pathology. CT/Chest WITH Contrast IMPRESSION: No acute disease perceived. No intrathoracic prostate metastasis identified Individualized dose optimization techniques were used for this CT. at 2343 Reported and signed by: Emery Hanna MD Electronically Signed: Emery Hanna MD at 23:42 EDT Tel , Service support ,
== END ==
PROVIDERS: Family Provider Family Medicine Geriatric Medicine; PCP Family Medicine Geriatric Medicine; Referring Provider Internal Medicine Medical Oncology; Visit Provider Internal Medicine Medical Oncology
DX: C61 Malignant neoplasm of prostate (principal)
CPT/HCPCS: 71260; 74177; Q9967

== ENCOUNTER → 2019-07-24 16:41 | Outpatient (CLI) | payer SELFPAY ==
[2019-04-24 14:05] VITALS: BMI 34.0
[2019-07-23 11:20] VITALS: BMI 34.4
[2019-07-24 17:08] LABS: Absolute Lymphocyte Count 1.35 X10^3/uL (0.83-4.51); Basophil# 0.04 X10^3/uL; Basophil% 0.2 % (0-1); Hematocrit 41.7 % (40-54); Hemoglobin 13.5 g/dL (13.0-16.5); Lymphocyte # 1.35 X10^3/ul (4.0); Lymphocyte % 5.5 % (19-41); Mean Corp Hgb Conc 32.4 g/dL (32-36); Mean Corpuscular Hgb 28.3 pg (27.0-32.0); Mean Corpuscular Volume 87.4 fL (80-94); Mean Platelet Vol. 10.5 fl (6.2-12.0); Monocyte# 1.08 X10^3/uL; Monocyte% 4.4 % (0-10); NRBC Flagged by Analyzer 0 % (0-5); Neutrophil # 21.99 X10^3/uL (2.7-7.7); Neutrophil % 88.8 % (47-70); POSITIVE DIFFERENTIAL YES; Platelet Count 372 K/mm3 (150-450); RBC Distribution Width CV 16.6 % (11.6-14.6); RBC Distribution Width SD 50.7 fl (35.1-43.9); Red Blood Count 4.77 M/mm3 (4.6-6.2); White Blood Count 24.7 K/mm3 (4.4-11.0)
[2019-07-24 17:16] LABS: Differential Indicated SCAN CRITERIA MET
[2019-07-24 17:35] LABS: Differential Comment SCANNED
[2019-07-24 17:46] LABS: AST(SGOT) 35 U/L (15-37); Alanine Aminotransfer ALT/SGPT 36 U/L (16-61); Albumin, Serum 3.5 g/dL (3.2-5.0); Alkaline Phosphatase 59 U/L (45-117); Anion Gap 4 (5-15); BUN 29 mg/dL (7-18); BUN/Creat Ratio 25.7 RATIO (10-20); Chloride 106 mmol/L (98-107); Creatinine, Serum 1.13 mg/dL (0.70-1.30); EST Glomerular Filtration Rate 71 mL/min (>60); Est Glom Filt Rate - Afr Amer 86 mL/min (>60); Globulin 3.4 g/dL (2.2-4.2); Glucose 124 mg/dL (74-106); Potassium 4.4 mmol/L (3.5-5.1); Protein, Total 6.9 g/dL (6.4-8.2); Sodium Level 143 mmol/L (136-145); Thyroid Stim Hormone (TSH) 0.93 uIU/mL (0.358-3.74)
== END ==
PROVIDERS: Family Provider Family Medicine Geriatric Medicine; PCP Family Medicine Geriatric Medicine; Visit Provider Family Medicine Geriatric Medicine
DX: E87.6 Hypokalemia (principal); I10 Essential (primary) hypertension; E11.65 Type 2 diabetes mellitus with hyperglycemia
CPT/HCPCS: 36415; 80053; 84443; 85025

== ENCOUNTER → 2019-09-26 08:13 | Outpatient (CLI) | payer SELFPAY ==
[2019-09-03 11:07] VITALS: BMI 34.2
--- NOTE | 2019-09-26 08:14 | CT_ITS ---
HISTORY: PROSTATE CA, TREATMENT RESPONSE CHECK, TURP ADDITIONAL HISTORY: None provided. TECHNIQUE: CT images were obtained of the abdomen and pelvis with 100 mL Isovue-300 IV contrast. Enteric contrast was given. A radiation dose optimization technique was used for this scan. Number of images including paperwork: [phone] COMPARISON: 05/01/2019 FINDINGS: LOWER THORAX: No consolidation or pleural effusion. LIVER: 1.9 x 1.8 cm heterogeneous lesion in the right lobe of the liver on series 2 image 23 appears unchanged, perhaps hemangioma. GALLBLADDER: Multiple calcified gallstones in the gallbladder. Mild gallbladder wall thickening. BILE DUCTS: No significant biliary dilatation. SPLEEN: Unremarkable. PANCREAS: Unremarkable. ADRENAL GLANDS: Unremarkable. KIDNEYS/URETERS: Unremarkable. BOWEL: No bowel obstruction. No significant bowel wall thickening. No localized inflammation. APPENDIX: Normal. FREE FLUID: No significant free fluid. FREE AIR: None. LYMPH NODES: Retroperitoneal adenopathy has decreased. Ophthalmic Aide retroperitoneal node on series 2 image 56 measures 5 mm in short axis dimension, previously 18 mm. Pelvic adenopathy has decreased. Ophthalmic Aide left iliac node on series 2 image 90 measures 8 mm in short axis dimension, previously 15 mm. PERITONEUM, RETROPERITONEUM AND MESENTERY: Otherwise unremarkable. VASCULATURE: Atherosclerotic calcification. Vascular tortuosity. PELVIS: Bladder wall thickening with adjacent stranding appears similar. Prostate measures approximately 5.0 x 4.0 x 4.0 cm, previously 5.8 x 5.0 x 4.5 cm ABDOMINAL WALL: Unremarkable. OSSEOUS AND SOFT TISSUE STRUCTURES: No acute skeletal findings. Sclerosis of the right pubic bone appears similar. Degenerative changes. CT/Abdomen/Pelvis WITH Contrast IMPRESSION: Interval decrease in size of the prostate with decrease in retroperitoneal and pelvic adenopathy. Additional findings above. Individualized dose optimization techniques were used for this CT. at 8789 Reported and signed by: Gypsy Hook MD Electronically Signed: Gypsy Hook MD at 23:19 EST Tel , Service support ,
[2019-09-26 08:20] LABS: Absolute Lymphocyte Count 1.85 X10^3/uL (0.83-4.51); Absolute Neutrophil Count 11.2 X10^3/uL (2.0-7.7); Basophil# 0.14 X10^3/uL; Basophil% 0.9 % (0-1); Eosinophil# 0.15 X10^3/uL; Hematocrit 38.8 % (40-54); Lymphocyte # 1.85 X10^3/ul (4.0); Lymphocyte % 12.3 % (19-41); Mean Corp Hgb Conc 30.9 g/dL (32-36); Mean Corpuscular Volume 87.2 fL (80-94); Mean Platelet Vol. 9.2 fl (6.2-12.0); Monocyte# 1.46 X10^3/uL; Monocyte% 9.7 % (0-10); NRBC Flagged by Analyzer 0 % (0-5); Neutrophil # 11.19 X10^3/uL (2.7-7.7); Neutrophil % 74.8 % (47-70); Platelet Count 437 K/mm3 (150-450); RBC Distribution Width CV 19.9 % (11.6-14.6); RBC Distribution Width SD 62.3 fl (35.1-43.9); Red Blood Count 4.45 M/mm3 (4.6-6.2)
[2019-09-26 08:37] LABS: ALB/GLOB Ratio 0.7 RATIO (0.9-2.4); AST(SGOT) 19 U/L (15-37); Alanine Aminotransfer ALT/SGPT 17 U/L (16-61); Albumin, Serum 2.7 g/dL (3.2-5.0); Alkaline Phosphatase 80 U/L (45-117); Anion Gap 4 (5-15); BUN 13 mg/dL (7-18); BUN/Creat Ratio 13.6 RATIO (10-20); Calcium,Total 9.1 mg/dL (8.5-10.1); Chloride 104 mmol/L (98-107); Creatinine, Serum 0.95 mg/dL (0.70-1.30); EST Glomerular Filtration Rate 87 mL/min (>60); Est Glom Filt Rate - Afr Amer 105 mL/min (>60); Globulin 3.8 g/dL (2.2-4.2); Glucose 107 mg/dL (74-106); LDH 209 U/L (87-241); Potassium 3.9 mmol/L (3.5-5.1); Protein, Total 6.5 g/dL (6.4-8.2); Sodium Level 141 mmol/L (136-145)
[2019-09-26 08:50] LABS: PSA,Total- Diagnostic 0.34 ng/mL (0.0-4.0)
[2019-09-26 16:17] LABS: Xtra Tube EP Lab EXTRA TUBE
== END ==
PROVIDERS: PCP Family Medicine Geriatric Medicine; Referring Provider Internal Medicine Medical Oncology; Visit Provider Internal Medicine Medical Oncology
DX: C61 Malignant neoplasm of prostate (principal)
CPT/HCPCS: 74177; 80053; 83615; 84153; 85025; Q9967

== ENCOUNTER → 2020-02-18 16:20 | Outpatient (CLI) | payer SELFPAY ==
[2019-12-04 10:39] VITALS: BMI 32.0
[2020-02-18 17:12] LABS: Absolute Lymphocyte Count 3.16 X10^3/uL (0.83-4.51); Absolute Neutrophil Count 4.5 X10^3/uL (2.0-7.7); Basophil# 0.04 X10^3/uL; Basophil% 0.4 % (0-1); Eosinophil# 0.64 X10^3/uL; Eosinophils% 7.1 % (0-5); Hematocrit 43.4 % (40-54); Hemoglobin 14.1 g/dL (13.0-16.5); Lymphocyte # 3.16 X10^3/ul (4.0); Mean Corp Hgb Conc 32.5 g/dL (32-36); Mean Corpuscular Hgb 28.6 pg (27.0-32.0); Mean Platelet Vol. 10.6 fl (6.2-12.0); Monocyte% 7.7 % (0-10); NRBC Flagged by Analyzer 0 % (0-5); Neutrophil # 4.47 X10^3/uL (2.7-7.7); Neutrophil % 49.5 % (47-70); Platelet Count 286 K/mm3 (150-450); RBC Distribution Width CV 15.5 % (11.6-14.6); RBC Distribution Width SD 49.4 fl (35.1-43.9); Red Blood Count 4.93 M/mm3 (4.6-6.2)
[2020-02-18 18:08] LABS: ALB/GLOB Ratio 0.9 RATIO (0.9-2.4); AST(SGOT) 21 U/L (15-37); Alanine Aminotransfer ALT/SGPT 25 U/L (16-61); Albumin, Serum 3.3 g/dL (3.2-5.0); Alkaline Phosphatase 73 U/L (45-117); Anion Gap 2 (5-15); BUN 15 mg/dL (7-18); BUN/Creat Ratio 19.9 RATIO (10-20); Calcium,Total 8.8 mg/dL (8.5-10.1); Chloride 104 mmol/L (98-107); Creatinine, Serum 0.76 mg/dL (0.70-1.30); EST Glomerular Filtration Rate 113 mL/min (>60); Est Glom Filt Rate - Afr Amer 137 mL/min (>60); Globulin 3.8 g/dL (2.2-4.2); Glucose 119 mg/dL (74-106); Potassium 2.9 mmol/L (3.5-5.1); Protein, Total 7.1 g/dL (6.4-8.2); Sodium Level 140 mmol/L (136-145); Thyroid Stim Hormone (TSH) 3.03 uIU/mL (0.358-3.74)
== END ==
PROVIDERS: PCP Family Medicine Geriatric Medicine; Visit Provider Family Medicine Geriatric Medicine
DX: E11.65 Type 2 diabetes mellitus with hyperglycemia (principal); I10 Essential (primary) hypertension
CPT/HCPCS: 36415; 80053; 84443; 85025

== ENCOUNTER → 2020-04-29 17:09 | Outpatient (CLI) | payer SELFPAY ==
[2019-12-04 10:39] VITALS: BMI 32.0
[2020-04-29 17:30] LABS: Absolute Neutrophil Count 5.2 X10^3/uL (2.0-7.7); Basophil# 0.07 X10^3/uL; Basophil% 0.7 % (0-1); Eosinophil# 0.63 X10^3/uL; Hematocrit 43.3 % (40-54); Hemoglobin 14.2 g/dL (13.0-16.5); Mean Corp Hgb Conc 32.8 g/dL (32-36); Mean Corpuscular Volume 91.4 fL (80-94); Mean Platelet Vol. 10.6 fl (6.2-12.0); Monocyte# 0.96 X10^3/uL; Monocyte% 9.1 % (0-10); NRBC Flagged by Analyzer 0 % (0-5); Neutrophil # 5.19 X10^3/uL (2.7-7.7); Neutrophil % 48.9 % (47-70); Platelet Count 297 K/mm3 (150-450); RBC Distribution Width CV 14.4 % (11.6-14.6); RBC Distribution Width SD 47.9 fl (35.1-43.9); Red Blood Count 4.74 M/mm3 (4.6-6.2); White Blood Count 10.6 K/mm3 (4.4-11.0)
[2020-04-29 17:58] LABS: Anion Gap 5 (5-15); BUN 18 mg/dL (7-18); BUN/Creat Ratio 21.6 RATIO (10-20); Calcium,Total 9.3 mg/dL (8.5-10.1); Chloride 105 mmol/L (98-107); Creatinine, Serum 0.83 mg/dL (0.70-1.30); EST Glomerular Filtration Rate 101 mL/min (>60); Est Glom Filt Rate - Afr Amer 122 mL/min (>60); Glucose 96 mg/dL (74-106); Sodium Level 144 mmol/L (136-145)
== END ==
PROVIDERS: PCP Family Medicine Geriatric Medicine; Referring Provider Family Medicine Geriatric Medicine; Visit Provider Family Medicine Geriatric Medicine
DX: E87.6 Hypokalemia (principal); I10 Essential (primary) hypertension
CPT/HCPCS: 36415; 80048; 85025

== ENCOUNTER → 2020-05-27 08:43 | Outpatient (CLI) | payer SELFPAY ==
[2020-05-20 11:03] VITALS: BMI 34.9
--- NOTE | 2020-05-27 08:47 | RDU_ITS ---
Reason For Study: renal artery stenosis Right Renal Artery Left Renal Artery Right renal artery ostium Left renal artery ostium 79.5/37.8 123.4/31.2 RSV/EDV. PSV/EDV. Right renal artery proximal Left renal artery proximal PSV/EDV 92.6/33.4 PSV/EDV. 86.1/31.2 . Right renal artery mid 92.6/37.8 Left renal artery mid 92.6/31.2 PSV/EDV. PSV/EDV . Right renal artery distal 77.3/35.6 Left renal artery distal 54.1/17.8 PSV/EDV. PSV/EDV. Right RAR 1.8. Left RAR 1.4. Right Renal Parenchyma Left Renal Parenchyma Upper Pole Medula 24.3/11.1 Left upper pole medulla 25.8/13.9 PSV/EDV. PSV/EDV . Right upper pole medulla EDR .46 . Left upper pole medulla EDR .54 . Right upper pole medulla R.I. .54 . Left upper pole medulla R.I. .46 . Upper Edy Cortx 18.8/9.5 PSV/EDV. UP Cortex 31.2/15.7 PSV/EDV. Right upper pole cortex EDR .5 . Left upper pole cortex EDR .5 . Right upper pole cortex R.I. .5 . Left upper pole cortex R.I. .5 . Right lower Pole medulla 22.6/12.2 Left lower Pole medulla 28.5/13.9 PSV/EDV . PSV/EDV . Right lower pole medulla EDR .54 . Left lower pole medulla EDR .49 . Right lower pole medulla R.I. .46 . Left lower pole medulla R.I. .51 . Lower Pole Cortex 21.0/10.6 Lower Pole Cortx 26.7/13.0 PSV/EDV. PSV/EDV. Left lower pole cortex EDR .49 . Right lower pole cortex EDR .5 . Left lower pole cortex R.I. .51 . Right lower pole cortex R.I. .5 . Left Renal Hilar Right Renal Hilar LT Hilar avg 32.7/14.2 PSV/EDV . Right Hilar avg 29.2/16.0 PSV/EDV. Left hilar acceleration time 50 Right hilar acceleration time 50 m/sec. m/sec. Left Renal Dimensions Right Renal Dimensions Left kidney size 12.0 cm . Right kidney size 11.4 cm . Left cortical dimension 1.94 cm . Right cortical dimension 1.55 cm . Aorta Proximal abdominal aorta 1.81 x 1.81 cm . Proximal abdominal aorta peak systolic velocity is 66.6 cm/sec . Distal abdominal aorta 1.69 x 1.83 cm . Distal abdominal aorta peak systolic velocity is 77.6 cm/sec . Normal renal veins bilat. Interpretation Summary Dimensions of the intra-abdominal aorta appear normal, without evidence of aneurysmal dilatation. Renal artery velocities are bilaterally normal. Acceleration times are normal bilaterally. Renal- aortic ratios are also bilaterally normal. There is no evidence of hemodynamically significant renal artery stenosis on either side. Renovascular resistance appears to be bilaterally normal . The right cortical dimension is increased. The left cortical dimension is increased. Kidneys appear normal in size bilaterally. Ordering Physician: Florencio Leger Performed By: Sung Tran RVT
== END ==
PROVIDERS: PCP Family Medicine Geriatric Medicine; Referring Provider Family Medicine Geriatric Medicine; Visit Provider Family Medicine Geriatric Medicine
DX: I70.1 Atherosclerosis of renal artery (principal)
CPT/HCPCS: 93975

== ENCOUNTER → 2020-06-27 09:49 | Outpatient (CLI) | payer SELFPAY ==
[2020-06-11 13:10] VITALS: BMI 34.9
--- NOTE | 2020-06-27 09:54 | ECHODONC_ITS ---
Version 2 Reason For Study: HTN Procedure This was a 2D Doppler, Color Flow transthoracic echocardiogram. Myocardial strain analysis was performed in this exam to aid in the assessment of cardiac function. Exam performed in department. Left Ventricle Normal LV size. Left ventricular systolic function is normal. The estimated ejection fraction is 60 %. No regional wall motion abnormalities noted. Right Ventricle Normal RV size. Normal systolic function. Atria Normal left atrium. Normal right atrium. Bubble contrast study negative for right to left interatrial shunt. Mitral Valve Normal mitral valve. Tricuspid Valve Normal tricuspid valve. Aortic Valve Normal aortic valve. Trisinus/trileaflet aortic valve. Pulmonic Valve Normal pulmonic valve. Great Vessels Normal aortic root. The pulmonary artery is normal size. Normal inferior vena cava. Pericardium/Pleural No pericardial effusion. Medication 22 gauge I.V. with prn adaptor inserted into right arm. Performed a rapid injection of agitated mix of 9 cc saline and 1cc air to assess for atrial septal defect. MMode/2D Measurements & Calculations LVIDd: 5.2 cm IVSd: 1.5 cm Ao root diam: 3.7 cm LVIDs: 3.2 cm LVPWd: 1.5 cm LA dimension: 3.6 cm RVDd: 2.6 cm FS: 38.9 % LAV(MOD-bp): 39.4 ml LVAd ap4: 29.2 cm2 SV(MOD-sp4): 59.1 ml LAV(MOD-bp) Indexed: 17.5 ml/m2 EDV(MOD-sp4): 85.8 ml LAV(MOD-sp2): 45.4 ml EDV(sp4-el): 89.9 ml LAV(MOD-sp4): 33.6 ml LVAs ap4: 14.7 cm2 ESV(MOD-sp4): 26.7 ml ESV(sp4-el): 26.3 ml EF(MOD-sp4): 68.9 % EF(sp4-el): 70.7 % SV(sp4-el): 63.5 ml LA A4 area: 14.4 cm2 RA A4 area: 12.8 cm2 Time Measurements MV dec time: 0.31 sec Doppler Measurements & Calculations MV E max tano: 53.6 cm/sec Lat Peak E' Tano: 5.9 cm/sec Med Peak E' Tano: 6.5 cm/sec MV A max tano: 87.9 cm/sec E/E' lat: 9.1 E/E' med: 8.2 MV E/A: 0.61 MV V2 max: 99.2 cm/sec MV P1/2t max tano: 69.3 cm/sec Ao V2 max: 146.4 cm/sec MV max P.9 mmHg MV P1/2t: 93.7 msec Ao max P.6 mmHg MV V2 mean: 48.3 cm/sec MV mean P.1 mmHg MV dec slope: 216.8 cm/sec2 MV V2 VTI: 25.0 cm MVA(P1/2t): 2.3 cm2 LV V1 max: 119.2 cm/sec PA V2 max: 91.5 cm/sec LV V1 max P.7 mmHg Interpretation Summary Normal LV size. Left ventricular systolic function is normal. The estimated ejection fraction is 60 %. Structurally normal valves. The global longitudinal strain is normal. The global longitudinal strain = -22.1 % (normal). Ordering Physician: Darwin Painting Referring Physician: Florencio Leger Chi Performed By: Hari Ortez RCS
== END ==
PROVIDERS: PCP Family Medicine Geriatric Medicine; Referring Provider Internal Medicine Cardiovascular Disease; Visit Provider Internal Medicine Cardiovascular Disease
DX: I34.0 Nonrheumatic mitral (valve) insufficiency (principal); I10 Essential (primary) hypertension
CPT/HCPCS: 93306; 93356; A4216

== ENCOUNTER → 2020-08-22 10:15 | Outpatient (CLI) | payer SELFPAY ==
[2020-08-15 10:54] VITALS: BMI 36.4
[2020-08-22 10:42] LABS: Absolute Lymphocyte Count 3.15 X10^3/uL (0.83-4.51); Absolute Neutrophil Count 5.9 X10^3/uL (2.0-7.7); Basophil# 0.06 X10^3/uL; Basophil% 0.6 % (0-1); Eosinophil# 0.62 X10^3/uL; Eosinophils% 5.8 % (0-5); Hematocrit 46.8 % (40-54); Hemoglobin 15.8 g/dL (13.0-16.5); Lymphocyte # 3.15 X10^3/ul (4.0); Lymphocyte % 29.5 % (19-41); Mean Corp Hgb Conc 33.8 g/dL (32-36); Mean Corpuscular Hgb 30.3 pg (27.0-32.0); Mean Corpuscular Volume 89.7 fL (80-94); Mean Platelet Vol. 10.5 fl (6.2-12.0); Monocyte# 0.88 X10^3/uL; Monocyte% 8.2 % (0-10); NRBC Flagged by Analyzer 0 % (0-5); Neutrophil # 5.92 X10^3/uL (2.7-7.7); Neutrophil % 55.5 % (47-70); Platelet Count 327 K/mm3 (150-450); RBC Distribution Width CV 13.9 % (11.6-14.6); RBC Distribution Width SD 45.2 fl (35.1-43.9); Red Blood Count 5.22 M/mm3 (4.6-6.2); White Blood Count 10.7 K/mm3 (4.4-11.0)
[2020-08-22 11:18] LABS: ALB/GLOB Ratio 0.9 RATIO (0.9-2.4); AST(SGOT) 23 U/L (15-37); Alanine Aminotransfer ALT/SGPT 37 U/L (16-61); Albumin, Serum 3.6 g/dL (3.2-5.0); Alkaline Phosphatase 83 U/L (45-117); Anion Gap 2 (5-15); BUN 8 mg/dL (7-18); BUN/Creat Ratio 10.4 RATIO (10-20); Calcium,Total 9.4 mg/dL (8.5-10.1); Chloride 102 mmol/L (98-107); Creatinine, Serum 0.77 mg/dL (0.70-1.30); EST Glomerular Filtration Rate 110 mL/min (>60); Est Glom Filt Rate - Afr Amer 133 mL/min (>60); Globulin 3.9 g/dL (2.2-4.2); Glucose 142 mg/dL (74-106); Potassium 3.3 mmol/L (3.5-5.1); Protein, Total 7.5 g/dL (6.4-8.2); Sodium Level 139 mmol/L (136-145)
== END ==
PROVIDERS: PCP Family Medicine Geriatric Medicine; Referring Provider Family Medicine Geriatric Medicine; Visit Provider Family Medicine Geriatric Medicine
DX: I10 Essential (primary) hypertension (principal)
CPT/HCPCS: 36415; 80053; 84443; 85025

== ENCOUNTER → 2020-11-21 14:23 | Outpatient (CLI) | payer SELFPAY ==
[2020-11-18 11:08] VITALS: BMI 37.1
--- NOTE | 2020-11-21 14:31 | VDLE_ITS ---
Reason For Study: EDEMA Procedure LEFT Exam performed in department. GSV is normal. This is a venous duplex using B-mode, color CFV is compressible, spontaneous, phasic, flow and spectral Doppler. competent, and demonstrates normal A preliminary report was called and/or faxed augmentation. to DR CHAN. FV is compressible, spontaneous, phasic, competent and demonstrates normal augmentation. POP V is compressible, spontaneous, phasic, competent and demonstrates normal augmentation. T/P Trunk is compressible. PTV is compressible. LT PerV is compressible. VL/Venous Duplex US, Unilateral Interpretation Summary Deep veins of the left lower extremity are patent and compressible segmentally. There is no evidence of left lower extremity deep vein thrombosis. Valvular competence appears intac t within the proximal deep venous system on the left . The left great saphenous vein appears patent a nd compressible segmentally. Ordering Physician: FRANK CHAN Referring Physician: FRANK CHAN Performed By: Bonnie Vance, RDCS, RVT
== END ==
PROVIDERS: PCP Family Medicine Geriatric Medicine; Visit Provider Family Medicine Geriatric Medicine
DX: R60.0 Localized edema (principal)
CPT/HCPCS: 93971

== ENCOUNTER → 2021-02-20 09:09 | Outpatient (CLI) | payer SELFPAY ==
[2020-11-28 09:27] VITALS: BMI 37.0
[2021-02-20 12:23] LABS: Absolute Neutrophil Count 6.6 X10^3/uL (2.0-7.7); Basophil# 0.06 X10^3/uL; Basophil% 0.5 % (0-1); Eosinophil# 0.62 X10^3/uL; Eosinophils% 5.5 % (0-5); Hematocrit 47.1 % (40-54); Hemoglobin 15.6 g/dL (13.0-16.5); Lymphocyte % 26.8 % (19-41); Mean Corp Hgb Conc 33.1 g/dL (32-36); Mean Corpuscular Hgb 30.2 pg (27.0-32.0); Mean Corpuscular Volume 91.3 fL (80-94); Mean Platelet Vol. 11.5 fl (6.2-12.0); Monocyte# 0.88 X10^3/uL; Monocyte% 7.9 % (0-10); NRBC Flagged by Analyzer 0 % (0-5); Neutrophil # 6.61 X10^3/uL (2.7-7.7); Neutrophil % 58.9 % (47-70); Platelet Count 336 K/mm3 (150-450); RBC Distribution Width CV 13.8 % (11.6-14.6); RBC Distribution Width SD 46.6 fl (35.1-43.9); Red Blood Count 5.16 M/mm3 (4.6-6.2); White Blood Count 11.2 K/mm3 (4.4-11.0)
[2021-02-20 12:42] LABS: ALB/GLOB Ratio 0.9 RATIO (0.9-2.4); AST(SGOT) 34 U/L (15-37); Alanine Aminotransfer ALT/SGPT 53 U/L (16-61); Albumin, Serum 3.5 g/dL (3.2-5.0); Alkaline Phosphatase 88 U/L (45-117); Anion Gap 7 (5-15); BUN 9 mg/dL (7-18); BUN/Creat Ratio 9.8 RATIO (10-20); Calcium,Total 9.1 mg/dL (8.5-10.1); Chloride 98 mmol/L (98-107); Creatinine, Serum 0.92 mg/dL (0.70-1.30); EST Glomerular Filtration Rate 90 mL/min (>60); Est Glom Filt Rate - Afr Amer 109 mL/min (>60); Globulin 3.9 g/dL (2.2-4.2); Glucose 198 mg/dL (74-106); PSA,Total - Annual Screen 0.43 ng/mL (0.00-4.00); Potassium 3.5 mmol/L (3.5-5.1); Protein, Total 7.4 g/dL (6.4-8.2); Sodium Level 140 mmol/L (136-145); Thyroid Stim Hormone (TSH) 2.93 uIU/mL (0.358-3.74)
== END ==
PROVIDERS: PCP Family Medicine Geriatric Medicine; Visit Provider Family Medicine Geriatric Medicine
DX: E11.65 Type 2 diabetes mellitus with hyperglycemia (principal); I10 Essential (primary) hypertension; Z12.5 Encounter for screening for malignant neoplasm of prostate
CPT/HCPCS: 36415; 80053; 84153; 84443; 85025; G0103

== ENCOUNTER 2021-08-24 16:11 | Outpatient (CLI) | payer SELFPAY ==
[2021-08-24 16:42] LABS: Absolute Lymphocyte Count 3.93 X10^3/uL (0.83-4.51); Absolute Neutrophil Count 8.2 X10^3/uL (2.0-7.7); Basophil# 0.07 X10^3/uL; Basophil% 0.5 % (0-1); Eosinophil# 0.47 X10^3/uL; Eosinophils% 3.4 % (0-5); Hematocrit 45.6 % (40-54); Hemoglobin 15.5 g/dL (13.0-16.5); Lymphocyte # 3.93 X10^3/ul (0.83-4.51); Lymphocyte % 28.6 % (19-41); Mean Corpuscular Hgb 30.4 pg (27.0-32.0); Mean Corpuscular Volume 89.4 fL (80-94); Mean Platelet Vol. 10.7 fl (6.2-12.0); Monocyte# 1.03 X10^3/uL; Monocyte% 7.5 % (0-10); NRBC Flagged by Analyzer 0 % (0-5); Neutrophil # 8.16 X10^3/uL (2.7-7.7); Neutrophil % 59.6 % (47-70); Platelet Count 361 K/mm3 (150-450); RBC Distribution Width CV 13.9 % (11.6-14.6); RBC Distribution Width SD 45.2 fl (35.1-43.9); White Blood Count 13.7 K/mm3 (4.4-11.0)
[2021-08-24 17:56] LABS: AST(SGOT) 39 U/L (15-37); Alanine Aminotransfer ALT/SGPT 66 U/L (16-61); Albumin, Serum 3.7 g/dL (3.2-5.0); Alkaline Phosphatase 68 U/L (45-117); Anion Gap 5 (5-15); BUN 13 mg/dL (7-18); BUN/Creat Ratio 14.1 RATIO (10-20); Calcium,Total 9.5 mg/dL (8.5-10.1); Chloride 100 mmol/L (98-107); Creatinine, Serum 0.92 mg/dL (0.70-1.30); EST Glomerular Filtration Rate 89 mL/min (>60); Est Glom Filt Rate - Afr Amer 108 mL/min (>60); Globulin 3.8 g/dL (2.2-4.2); Glucose 97 mg/dL (74-106); Potassium 3.5 mmol/L (3.5-5.1); Protein, Total 7.5 g/dL (6.4-8.2); Sodium Level 141 mmol/L (136-145); Thyroid Stim Hormone (TSH) 3.81 uIU/mL (0.358-3.74)
== END 2021-08-24 23:59 | disposition short-term general hospital (02) ==
LOC: POLAB3 16:12
PROVIDERS: PCP Family Medicine Geriatric Medicine; Visit Provider Family Medicine Geriatric Medicine
DX: E11.65 Type 2 diabetes mellitus with hyperglycemia (principal); I10 Essential (primary) hypertension
CPT/HCPCS: 36415; 80053; 84443; 85025

== ENCOUNTER 2021-11-19 12:12 | Outpatient (CLI) | payer SELFPAY ==
--- NOTE | 2019-04-11 | IMM_PTH ---
PATIENT: STEPHANIE MOREL Jr. LOC: [facility] U#:[id number] AGE/SX: 56/M ROOM: RE11/19/[address]: Dr. Luciano Nieto MD : 1965 BED: DIS: 11/19/2021 SPEC #: [id number] RECD: 11/19/21 12:18 STATUS: BRONWYN [place] #: [id number] DANIAL: 04/11/19 00:[address]: Luciano Nieto DEPT: IMMUNOHISTOCHEMISTRY RECD BY: Jordyn Hutchinson ENTERED: 11/19/21 12:20 SP TYPE: IMMUNO OTHR DR: Dr. Florencio Leger MD Tissues: B - PROSTATE BIOPSY Procedures: MSH2 (add) MLH-1 (add) MSH6 (add) Anti-PMS2 (add) KI-67 (add) P53 (add) HER-2-JOVITA (initial) PHYSICIAN & INSTITUTION [place] [id number] SPECIMEN INFORMATION: Tissue Source: B ? Prostate, core biopsy Clinical Info: Urinary retention, nodular prostate, elevated PSA Specimen Number: [id number] CPT code: 98066, 68370 x6 METHODOLOGY: Deparaffinized sections of prefer/formalin-fixed tissue or PAP/DQ stained slides are incubated with monoclonal/polyclonal antibodies/oligonucleotide probes. Localization is made via biotin free immunoperoxidase method. Appropriate controls are performed and reacted as expected. Results on target cell population are indicated in the following table: RESULTS: ANTIBODY / CLONE RESULT Block B Her-2neu (CB11) negative (0) MLH-1 (M1) positive MSH2 (25D12) positive MSH6 (44) positive PMS2 (VOU6613) positive Ki-67 (30-9) positive, high P53 (DO-7) negative These tests were developed and their performance characteristics determined by [facility]. They may not have been cleared or approved by the U.S. Food and Drug Administration. The FDA has determined that such clearance or approval is not necessary. The above immunohistochemical/dualISH markers are ordered by Dr. Nieto and reviewed by the Pathologist. INTERPRETATION: B. Prostate, core biopsy: Adenocarcinoma. Result of Microsatellite Instability Study: Negative (no loss of mismatch protein; no microsatellite instability detected). SJ:lucius 11/20/2021
== END 2021-11-19 23:59 | disposition home or self-care (01) ==
LOC: LABSPEC 12:15
PROVIDERS: PCP Family Medicine Geriatric Medicine; Visit Provider Internal Medicine Medical Oncology
DX: C61 Malignant neoplasm of prostate (principal)
CPT/HCPCS: 88341; 88342

== ENCOUNTER → 2021-12-02 | Outpatient (CLI) | payer SELFPAY ==
[2021-12-02 18:45] LABS: M R Staph aureus DNA By PCR Negative (Negative); Probe Check PASS; Specimen Processing Control PASS; Staph aureus DNA By PCR NEGATIVE (Negative)
== END | disposition home or self-care (01) ==
LOC: LABSPEC 16:51
PROVIDERS: PCP Family Medicine Geriatric Medicine; Visit Provider Family Medicine Geriatric Medicine
DX: L03.119 Cellulitis of unspecified part of limb (principal); B95.62 Methicillin resistant Staphylococcus aureus infection as the cause of diseases classified elsewhere
CPT/HCPCS: 87070; 87205; 87640

== ENCOUNTER → 2021-12-07 | Outpatient (CLI) | payer SELFPAY ==
--- NOTE | 2021-12-07 07:46 | CT_ITS ---
STUDY: CT CHEST, ABDOMEN T PELVIS WITH CONTRAST REASON FOR EXAM: Male, 56 years old. RESTAGING PROSTATE CA-IV ONLY. Elevated PSA levels. RADIATION DOSAGE (If Supplied By Facility): CTDIvol = ( 24.11 ) mGy, DLP = ( 2149.44 ) mGycm TECHNIQUE: Transaxial imaging was performed following intravenous administration of IV 100mL Isovue-300. Individualized dose optimization techniques were used for this CT. COMPARISON: Comparison is made with prior CT scan of the thorax dated 05/01/[address] scan of the abdomen and pelvis dated 09/26/2019. FINDINGS: CHEST There is a 2.9 cm x 1.8 cm cystic nodule in the subcutaneous tissues overlying the posterior right side of the thoracic wall on the right side. This has increased in size as compared to prior study. This may represent a sebaceous cyst. Stable small benign-appearing bilateral axillary lymph nodes. The lungs are normal. There is no demonstrated pleural abnormality. There are calcifications of the coronary arteries. Normal mediastinum. Normal hilar regions. Normal unenhanced pulmonary arteries. Normal aorta arch and descending thoracic aorta. There are multi-level degenerative changes of the thoracic spine. Diffuse fatty infiltration of the liver. ABDOMEN There is decreased attenuation of the liver consistent with steatosis. Stable 1.5 cm slightly hypodense nodule in the posterior right lobe of the liver. This may represent a small hemangioma. There is a solitary gallstone. Normal spleen. Normal pancreas. Normal bilateral adrenal glands. Normal right kidney. Normal left kidney. Normal visualized stomach. Normal small intestine. Normal colon. The appendix is visualized and appears normal. There is scattered atherosclerotic calcification of the abdominal aorta, without a demonstrated aneurysm. Normal inferior vena cava. There is borderline retroperitoneal lymphadenopathy with enlarged nodes no greater than 10mm in the short axis diameter. These have decreased in size as compared to prior study. Residual pelvic lymphadenopathy. The largest node measures 1.5 cm and is in the left side of the hemipelvis. There is a small umbilical hernia containing fat. PELVIS Diffuse bladder wall thickening of the urinary bladder. Irregular enlargement of the prostate measuring 4.2 cm by 3.6 cm. This causes indentation at the bladder base. Increased markings in the pelvic fat most likely secondary to prior radiation therapy. There is scattered atherosclerotic calcification of the pelvic arteries. Normal abdominal wall. There are mild degenerative changes of the visualized lumbar spine. Stable 8.5 mm sclerotic focus in the right iliac bone. This most likely represents a bone island. CT/CT Chest, Abd, Pel w/Contrast IMPRESSION: Persistent heterogeneous enlargement of the prostate gland with indentation of the bladder base. Bladder wall thickening. Interval decrease in size of the retroperitoneal and pelvic lymphadenopathy. Electronically Signed: Alfredo Lobo MD at 10:28 EDT ,
== END | disposition home or self-care (01) ==
PROVIDERS: PCP Family Medicine Geriatric Medicine; Referring Provider Internal Medicine Medical Oncology; Visit Provider Internal Medicine Medical Oncology
DX: C61 Malignant neoplasm of prostate (principal)
CPT/HCPCS: 71260; 74177; Q9967

== ENCOUNTER → 2021-12-10 | Outpatient (CLI) | payer SELFPAY ==
--- NOTE | 2021-12-10 07:58 | NM_ITS ---
CLINICAL: Male, 56 years old. RESTAGING PROSTATE CANCER -- Patient is unsure if diabetic -- Unsure why left leg was drained and dressed today. -- No other complaints WHOLE BODY NUCLEAR BONE SCAN TECHNIQUE: Following the IV administration of 25 mCi of Tc MDP, whole body bone imaging was performed with a gamma camera following a three hour delay. COMPARISON STUDIES : NM - 04/26/2019 CR - Not available for review at this time. CT - Not available for review at this time. MR - Not available for review at this time. US - Not available for review at this time. FINDINGS: Homogeneous uptake of radiopharmaceutical seen throughout the majority of the skeleton. There is some focally increased uptake within the sternoclavicular joints, acromioclavicular joints, wrists, hands and knees consistent with arthrosis. No other foci of increased uptake to suggest metastatic disease. Normal uptake range from some of the kidneys with excretion into the bladder. NM/Bone Scan Whole Body IMPRESSION: No scintigraphic evidence of metastatic disease. Electronically Signed: Ken Wynn MD at 12:41 EDT ,
== END | disposition home or self-care (01) ==
LOC: NM 07:57
PROVIDERS: PCP Family Medicine Geriatric Medicine; Referring Provider Internal Medicine Medical Oncology; Visit Provider Internal Medicine Medical Oncology
DX: C61 Malignant neoplasm of prostate (principal)
CPT/HCPCS: 78306; A9503

== ENCOUNTER → 2022-06-25 | Outpatient (CLI) | payer SELFPAY ==
[2022-06-25 13:17] LABS: Anion Gap 4 (5-15); BUN 11 mg/dL (7-18); BUN/Creat Ratio 14.1 RATIO (10-20); Calcium,Total 9.2 mg/dL (8.5-10.1); Chloride 103 mmol/L (98-107); Creatinine, Serum 0.78 mg/dL (0.70-1.30); EST Glomerular Filtration Rate 108 mL/min (>60); Est Glom Filt Rate - Afr Amer 131 mL/min (>60); Glucose 90 mg/dL (74-106); Potassium 4.1 mmol/L (3.5-5.1); Sodium Level 141 mmol/L (136-145)
[2022-07-02 07:07] LABS: Aldosterone, Serum 8.9 ng/dL (0.0-30.0)
[2022-07-02 08:53] LABS: Renin, Plasma < 0.167 ng/mL/hr (0.167-5.380)
== END | disposition home or self-care (01) ==
PROVIDERS: Nurse Practitioner Family; PCP Family Medicine; Visit Provider Internal Medicine Cardiovascular Disease
DX: I10 Essential (primary) hypertension (principal); E87.6 Hypokalemia; E78.5 Hyperlipidemia, unspecified
CPT/HCPCS: 36415; 80048; 82088; 84244

== ENCOUNTER → 2022-09-02 | Outpatient (CLI) | payer SELFPAY ==
[2022-09-02 18:57] LABS: Thyroid Stim Hormone (TSH) 4.06 uIU/mL (0.358-3.74)
== END | disposition home or self-care (01) ==
PROVIDERS: PCP Family Medicine; Referring Provider Family Medicine; Visit Provider Family Medicine
DX: E03.9 Hypothyroidism, unspecified (principal)
CPT/HCPCS: 36415; 84443

== ENCOUNTER → 2022-11-02 | Outpatient (CLI) | payer SELFPAY ==
--- NOTE | 2022-11-02 06:59 | CT_ITS ---
STUDY: CT ABDOMEN AND PELVIS WITH CONTRAST REASON FOR EXAM: Male, 57 years old. PROSTATE CA. Patient complains of pelvic pressure. Prior chemotherapy. RADIATION DOSAGE (If Supplied By Facility): CTDIvol = ( 20.56 ) mGy, DLP = ( 2654.37 ) mGycm TECHNIQUE: Transaxial images were obtained from the dome of the diaphragm to the symphysis pubis without oral contrast. IV 100mL Isovue-370 was administered. Sagittal and coronal images were reconstructed. Individualized dose optimization techniques were used for this CT. COMPARISON: Comparison is made with prior examination dated September 26, 2019 FINDINGS: The visualized lung bases are unremarkable. Coronary artery calcification. There is decreased attenuation of the liver consistent with steatosis. Stable 1.5 cm x 1.8 cm hypodensity in the posterior aspect of the right lobe of the liver with peripheral enhancement suggestive of hemangioma. There are multiple gallstones. Normal spleen. Normal pancreas. Normal bilateral adrenal glands. Normal right kidney. Normal left kidney. Normal visualized stomach. Normal small intestine. Normal colon. The appendix is visualized and appears normal. There is scattered atherosclerotic calcification of the abdominal aorta, without a demonstrated aneurysm. Normal inferior vena cava. Multiple small retroperitoneal lymph nodes are seen. The largest node measures 1.3 cm and is in the left para-aortic level. There is also evidence of a pelvic lymphadenopathy. A necrotic lymph node is seen in the left iliac chain measuring 1.5 cm. The urinary bladder is contracted. Diffuse bladder wall thickening. Increased markings are seen in the peritoneal fat in the pelvis. There is heterogeneous enlargement of the prostate. This measures 5 cm x 3.6 cm. This causes indentation at the bladder base. Bilateral inguinal lymphadenopathy more prominent on the left side. The largest lymph node measures 1.9 cm. Small umbilical hernia containing fat. There are degenerative changes of the visualized lumbar spine. CT/Abdomen/Pelvis W IV Cont ONLY IMPRESSION: Coronary artery calcification. Stable hemangioma in the right lobe of the liver. Gallstones. Multiple small retroperitoneal lymph nodes. Pelvic adenopathy. The largest lymph node in the left iliac chain measures 1.5 cm. This is necrotic. Diffuse bladder wall thickening with increased markings in the surrounding peritoneal fat. Electronically Signed: Alfredo Lobo MD at 7:54 EDT ,
== END | disposition home or self-care (01) ==
PROVIDERS: PCP Family Medicine; Visit Provider Urology
DX: R31.0 Gross hematuria (principal)
CPT/HCPCS: 74177; Q9967

== ENCOUNTER 2022-11-27 00:57 | Emergency (ER) | payer SELFPAY ==
[2022-11-27 00:59] VITALS: PULSE 95; RESP 18; TEMP 36.6; O2SAT 95
[2022-11-27 01:02] VITALS: BMI 35.6
[2022-11-27 01:03] VITALS: BP 184/90
[2022-11-27 01:52] LABS: Absolute Neutrophil Count 9.8 X10^3/uL (2.0-7.7); Basophil# 0.03 X10^3/uL; Basophil% 0.3 % (0-1); Eosinophil# 0.41 X10^3/uL; Eosinophils% 3.4 % (0-5); Hematocrit 36.5 % (40-54); Hemoglobin 12.1 g/dL (13.0-16.5); Lymphocyte % 6.7 % (19-41); Mean Corp Hgb Conc 33.2 g/dL (32-36); Mean Corpuscular Hgb 30.4 pg (27.0-32.0); Mean Corpuscular Volume 91.7 fL (80-94); Mean Platelet Vol. 9.7 fl (6.2-12.0); Monocyte# 0.78 X10^3/uL; Monocyte% 6.5 % (0-10); NRBC Flagged by Analyzer 0 % (0-5); Neutrophil # 9.81 X10^3/uL (2.7-7.7); Neutrophil % 82.3 % (47-70); Platelet Count 348 K/mm3 (150-450); RBC Distribution Width CV 13.4 % (11.6-14.6); RBC Distribution Width SD 45.1 fl (35.1-43.9); Red Blood Count 3.98 M/mm3 (4.6-6.2); White Blood Count 11.9 K/mm3 (4.4-11.0)
[2022-11-27 02:08] LABS: Anion Gap 5 (5-15); BUN 11 mg/dL (7-18); BUN/Creat Ratio 12.4 RATIO (10-20); Chloride 102 mmol/L (98-107); Creatinine, Serum 0.89 mg/dL (0.70-1.30); EST Glomerular Filtration Rate 93 mL/min (>60); Est Glom Filt Rate - Afr Amer 112 mL/min (>60); Estimated Creatinine Clearance 92.28 ml/min; Glucose 165 mg/dL (74-106); Sodium Level 135 mmol/L (136-145)
[2022-11-27 02:17] LABS: Prothrombin Time (Protime)PT. 13.2 SECONDS (11.7-14.9)
[2022-11-27 02:18] LABS: Partial Thromboplast Time 27.2 Seconds (24.1-36.2)
--- NOTE | 2022-11-27 04:27 | ED.RN ---
patient called out and stated that he felt alot of pressure. nursing staff in the room to irrigate catheter at this time. able to flush catheter and not pull back at this time. patient still complaining of severe pain. decision made to removed catheter and place a larger catheter in. pulled catheter out with large clot inside of the catheter. [address] with large amount of clots removed via manual irrigation. patient education provided at this time
[2022-11-27] MEDS: Ondansetron 4 MG/2 ML Vial IV (05:21)
[2022-11-27] MEDS: HYDROmorphone 1 MG/ML Syringe IV ×2 (05:21→07:27)
[2022-11-27] MEDS: Potassium Chloride Oral Tablet 20 MEQ 40 MEQ PO (05:26)
--- NOTE | 2022-11-27 05:32 | ED.RN ---
pt's remains at the bedside as this nurse irrigates the pt's catheter. c/o no pain medication not given to the pt when sin renee inserted swain catheter x2. was at the bedside and the pt's c/o to the doctor about why her did not get anything for pain. pt threatened many times that she can't go bitch mode went to obtain the pain medication that the doctor ordered and the pt's came to the desk c/o blood in the tubing. came in to the room and the was mad that he was still here and in pain. asked pt and wigfe what he/she wanted done first,the cath irrigated or pain medication. told this nurse medicate him. was preparing the medication and the pt was aggressive in tone and asked, What are you giving him. explained to her this nurse would educate as i gave it. Explained to them that this is Zofran and it is giving for nause.Pt's said,don't you be condesending to me! Explained to her that I was just going over his meds. Ask pt to rate his pain and that he was getting Dilaudid and the pt rated it to be a 4. Pt's through her hands in the air and sat down furious.
--- NOTE | 2022-11-27 05:32 | EX.ED.DYSGE1 ---
HPI History of Present Illness Chief Complaint: Complaint Informant: patient and spouse/S.O. Narrative Narrative: Patient is a 57-year-old male with past medical history of prostate cancer as well as hypertension and type 2 diabetes. He just started radiation and is on it for the past 5 days in a row. He states that he has had periods of intermittent bleeding from his penis for which he underwent a cystoscopy roughly 1 to 2 months ago. Reportedly the radiation is being done to help with the prostate cancer and also to cauterize the bleeding. He denies any history of bleeding disorder or blood thinner use. He states this evening around 7 PM that he could not urinate any further and after a few hours developed severe abdominal pain and with this presents to the hospital for evaluation [facility] Medical History (Updated 11/27/22 @ 06:[address] Wild William, ) Cancer related pain Chemotherapy management, encounter for Depression Dry skin Elevated PSA Essential (primary) hypertension Headache Hematuria Hyperlipidemia Hypokalemia Hypothyroidism Obesity Prostate cancer Type 2 diabetes mellitus Urinary retention Viral URI Home Medications aspirin 81 mg tablet,delayed release 81 mg PO DAILY 04/04/19 [History Last Taken 03/28/19] multivitamin 1 each PO QHS 04/04/19 [History Last Taken Unknown] atorvastatin 40 mg tablet 40 mg PO DAILY 06/11/20 [History Last Taken Unknown] valsartan 320 mg tablet (Diovan) 320 mg PO DAILY 06/11/20 [History Last Taken Unknown] hydrochlorothiazide 25 mg tablet 25 mg PO DAILY #90 tabs 12/24/21 [Rx Last Taken Unknown] levothyroxine 75 mcg tablet 75 mcg PO DAILY 12/24/21 [History Last Taken Unknown] metformin 1,000 mg tablet 1,000 mg PO BID 12/24/21 [History Last Taken Unknown] amlodipine 10 mg tablet 10 mg PO DAILY #90 tabs 01/06/22 [Rx Last Taken Unknown] cholecalciferol (vitamin D3) 125 mcg (5,000 unit) tablet 125 mcg PO DAILY 05/19/22 [History Last Taken Unknown] enzalutamide 40 mg tablet (Xtandi) 160 mg PO DAILY 05/19/22 [History Last Taken Unknown] green tea extract 500 mg capsule mg PO 05/19/22 [History Last Taken Unknown] spironolactone 25 mg tablet 25 mg PO DAILY #30 tabs 06/10/22 [Rx Last Taken Unknown] tamsulosin 0.4 mg capsule (Flomax) 0.4 mg PO QHS 06/10/22 [History Last Taken Unknown] doxazosin 8 mg tablet 8 mg PO DAILY #90 tabs 06/25/22 [Rx Last Taken Unknown] carvedilol 25 mg tablet (Coreg) 25 mg PO BID #60 tabs 07/13/22 [Rx Last Taken Unknown] atenolol 100 mg tablet 100 mg PO DAILY 10/20/22 [History Last Taken Unknown] ferrous sulfate 325 mg (65 mg iron) tablet 325 mg PO DAILY 10/20/22 [History Last Taken Unknown] finasteride 5 mg tablet 5 mg PO DAILY 11/02/22 [History Last Taken Unknown] leuprolide acetate (6 month) 45 mg (6 month) subcutaneous syringe (Eligard) 45 mg subcut [id number] 11/02/22 [History Last Taken Unknown] hydrocodone 5 mg-acetaminophen 300 mg tablet 1 tab PO Q4H 15 days #90 tabs 11/23/22 [Rx Last Taken Unknown] hydrocodone-acetaminophen 5-325mg 5mg-325mg 1 tab PO Q4H PRN pain 7 days #30 tabs 11/23/22 [Rx Last Taken Unknown] levothyroxine 100 mcg tablet 100 mcg PO DAILY 11/27/22 [History Last Taken Unknown] Allergy/AdvReac Type Severity Reaction Status Date / Time No Known Allergies Allergy Verified 11/27/22 01:05 Family History Brother Prostate cancer Mother Cancer Other Hx of tonsillectomy Surgical History H/O prostate biopsy History of transurethral resection of prostate (2019) History of vasectomy S/P tonsillectomy Social History Smoking Status: Current every day smoker tobacco type: cigarettes alcohol intake: never substance use type: does not use caffeine: Yes Type: carbonated beverages Number of servings: 2 and tea Number of servings: 2 ROS ROS ED Constitutional Constitutional ED: Denies chills or fever(s) ENT ENT ED: Denies sore throat Cardiovascular Cardiovascular: Denies chest pain Respiratory/Chest Respiratory/Chest: Denies cough or dyspnea Gastrointestinal Gastrointestinal: Reports abdominal pain; Denies diarrhea, nausea or vomiting Genitourinary Genitourinary ED: Reports hematuria Musculoskeletal Musculoskeletal: Denies back pain or myalgias Integumentary Denies rash Neurologic Neurologic: Denies headache(s) Hematologic/Lymphatic Hematologic/Lymphatic: Denies easy bleeding or easy bruising EXAM Physical Exam Const Vital Signs: 11/27/22 00:59 11/27/22 01:03 Temperature 97.9 F Temperature Source Temporal Pulse Rate 95 Respiratory Rate 18 Blood Pressure 184/90 H Blood Pressure Mean 121 Pulse Ox 95 Oxygen Delivery Method Room Air Positive well nourished and well developed General Appearance ED: well developed HEENT Reports moist mucous membranes Eyes PERRL and EOMs intact bilaterally General Eye ED: Negative for pale conjunctiva Neck supple Resp normal respiratory effort and clear to auscultation bilaterally Cardio regular rate and regular rhythm Rate: other Other Details: Radial pulses are plus 2 out of 4 bilaterally are equal and symmetric GI GI Narrative: There is organomegaly noted in the lower suprapubic/midline abdomen with mild distention at the site and pain on palpation consistent with a distended urinary bladder. The remainder of the abdominal exam is soft nontender nondistended with normal active bowel sounds Auscultation: normoactive bowel sounds Palpation: soft Narrative: There is blood at the urethral meatus without discharge present. No testicular masses or soft tissue changes to suggest Magda's gangrene Back/Spine no CVA tenderness Extremity normal to inspection Neuro oriented x3 and CN's II-XII intact bilaterally Sensorium / Orientation: alert Psych mental status grossly normal Skin no rashes or lesions noted MDM MDM MDM Narrative Medical decision making narrative: Patient presented to the ER hypertensive but was in pain secondary to acute urinary retention. History is concerning for acute urinary retention secondary to obstruction from blood clots. With concern that he could have been anemic from the persistent bleeding or have derangement to his platelets or bleeding times or developed obstructive nephropathy a basic work-up was obtained. Labs revealed hypokalemia at 3 but otherwise no clinically significant findings. A Crane catheter was placed and continuous irrigation was performed. There was improvement of his retention with flushing of multiple clots. However skilled nursing through this the catheter clotted off once again and it was unable to be irrigated. Therefore that Crane catheter was removed and a larger one placed. Once this occurred the patient did have improvement of his symptoms once again but continued to have intermittent obstruction from large blood clot. At this time the patient is having recurrent clots despite continuous irrigation. I do not feel it is safe for him to return home as there is a high likelihood he would clot off once again and lead to acute urinary retention. The patient cannot be kept at this facility because his urologist is out of town. Therefore [facility] in [place] was contacted and they do agree to accept the patient at this time. History & Record Review Discussion w/independent historian: Patient and Significant other Lab Data Attestation: I reviewed the patient's lab results. Labs: Laboratory Results - last 24 hr 11/27/22 11/27/22 11/27/22 01:40 01:40 01:40 WBC 11.9 H RBC 3.98 L Hgb 12.1 L Hct 36.5 L MCV 91.7 MCH 30.4 MCHC 33.2 RDW Std Deviation 45.1 H RDW Coeff of Reese 13.4 Plt Count 348 MPV 9.7 Immature Gran % (Auto) 0.800 Neut % (Auto) 82.3 H Lymph % (Auto) 6.7 L Dickey % (Auto) 6.5 Eos % (Auto) 3.4 Baso % (Auto) 0.3 Absolute Neuts (auto) 9.8 H Absolute Lymphs (auto) 0.80 L Nucleated RBC % 0 PT 13.2 INR 1.0 APTT 27.2 Sodium 135 L Potassium 3.0 L Chloride 102 Carbon Dioxide 28.0 Anion Gap 5 BUN 11 Creatinine 0.89 Estim Creat Clear Calc 92.28 Est GFR (MDRD) Af Amer 112 Est GFR (MDRD) Non-Af 93 BUN/Creatinine Ratio 12.4 Glucose 165 H Calcium 9.0 Management Discussion w/another healthcare provider: [employer] Consultant Discharge Plan Triage Chief Complaint: Complaint ED Provider: Wild William Dx/Rx/DC Orders Clinical Impression: Hematuria, Prostate cancer, Acute urinary retention, Hypokalemia, Essential (primary) hypertension Prescriptions: No Action valsartan [Diovan] 320 mg tablet 320 mg PO DAILY atorvastatin 40 mg tablet 40 mg PO DAILY levothyroxine 75 mcg tablet 75 mcg PO DAILY Label Comments: TAKE 1 TABLET BY MOUTH ONCE DAILY metformin 1,000 mg tablet 1,000 mg PO BID Label Comments: TAKE 1 TABLET BY MOUTH TWICE DAILY hydrochlorothiazide 25 mg tablet 25 mg PO DAILY Qty: 90 3RF doxazosin 8 mg tablet 8 mg PO DAILY Qty: 90 6RF atenolol 100 mg tablet 100 mg PO DAILY ferrous sulfate 325 mg (65 mg iron) tablet 325 mg PO DAILY finasteride 5 mg tablet 5 mg PO DAILY Eligard (6 month) 45 mg syringe 45 mg subcut [id number] multivitamin 1 EACH tablet 1 each PO QHS aspirin 81 MG tablet,delayed release (DR/EC) 81 mg PO DAILY levothyroxine 100 mcg tablet 100 mcg PO DAILY Label Comments: TAKE 1 TABLET BY MOUTH ONCE DAILY amlodipine 10 mg tablet 10 mg PO DAILY Qty: 90 3RF cholecalciferol (vitamin D3) 125 mcg (5,000 unit) tablet 125 mcg PO DAILY green tea extract 500 mg capsule PO Xtandi 40 mg tablet 160 mg PO DAILY tamsulosin [Flomax] 0.4 mg capsule 0.4 mg PO QHS spironolactone 25 mg tablet 25 mg PO DAILY Qty: 30 11RF carvedilol [Coreg] 25 mg tablet 25 mg PO BID Qty: 60 11RF Rx Instructions: must administer with a meal/food hydrocodone-acetaminophen 5-300 mg tablet 1 tab PO Q4H 15 Days Qty: 90 0RF hydrocodone-acetaminophen 5-325 mg tablet 1 tab PO Q4H PRN (Reason: pain) 7 Days Qty: 30 0RF Primary Care Provider: Niki Kaur Referrals: Niki Kaur, [Primary Care Provider] - Disposition Disposition: Acute Care Hospital Discharge Location: [facility]
[2022-11-27 06:45] VITALS: BP 210/123; PULSE 68; RESP 16; O2SAT 98
[2022-11-27 07:00] VITALS: BP 209/120; PULSE 65; RESP 18; O2SAT 99
[2022-11-27 07:03] VITALS: BP 183/114; PULSE 70; RESP 18; TEMP 37.1; O2SAT 94
== END 2022-11-27 07:36 | disposition short-term general hospital (02) ==
PROVIDERS: Emergency Provider Emergency Medicine; PCP Family Medicine; Visit Provider Emergency Medicine
DX: R31.9 Hematuria, unspecified (principal); C61 Malignant neoplasm of prostate; E11.9 Type 2 diabetes mellitus without complications; E87.6 Hypokalemia; N13.9 Obstructive and reflux uropathy, unspecified; Z80.42 Family history of malignant neoplasm of prostate; I10 Essential (primary) hypertension; R33.9 Retention of urine, unspecified; E78.5 Hyperlipidemia, unspecified
CPT/HCPCS: 51702; 80048; 85025; 85610; 85730; 96374; 96375; 96376; 99285; A4216; J2405

== ENCOUNTER → 2022-12-08 | Outpatient (CLI) | payer MEDICAID, SELFPAY ==
--- NOTE | 2022-12-08 10:00 | VDLE_ITS ---
Reason For Study: LEG SWELLING RIGHT LEFT GSV is normal. GSV is normal. CFV is compressible, spontaneous, phasic, CFV is compressible, spontaneous, phasic, competent and demonstrates normal competent, and demonstrates normal augmentation. augmentation. FV is compressible, spontaneous, phasic, FV is compressible, spontaneous, phasic, competent and demonstrates normal competent and demonstrates normal augmentation. augmentation. POP V is compressible, spontaneous, phasic, POP V is compressible, spontaneous, phasic, competent and demonstrates normal competent and demonstrates normal augmentation. augmentation. T/P Trunk is compressible. T/P Trunk is compressible. Acute deep vein thrombosis is noted in the PTV is compressible. PTV. It is dilated and NONCOMPRESSIBLE. LT PerV is compressible. RT PerV is compressible. Procedure This is a venous duplex using B-mode, color flow and spectral Doppler. Exam performed in department. The exam was diagnostic. A preliminary report was called and/or faxed to Parag RAMIREZ RN. VL/Venous Duplex US - Neeraj Extrem Interpretation Summary Acute deep vein thrombosis is noted in the right posterior tibial vein. Deep veins of the left lower extremity are patent and compressible segmentally. There is no evidence of left lower extremity deep vein thrombosis. The left great saphenous vein chantel ears patent and compressible segmentally. Ordering Physician: Luciano Nieto Referring Physician: Luciano Nieto Performed By: Raj Morales RVT
== END | disposition home or self-care (01) ==
LOC: CVS 09:59
PROVIDERS: PCP Family Medicine; Referring Provider Internal Medicine Medical Oncology; Visit Provider Internal Medicine Medical Oncology
DX: M79.89 Other specified soft tissue disorders (principal)
CPT/HCPCS: 93970

== ENCOUNTER → 2023-02-01 | Outpatient (CLI) | payer MEDICAID, SELFPAY ==
[2023-02-01 18:20] LABS: Vitamin D,25 Hydroxy 81.6 ng/mL
[2023-02-01 18:26] LABS: Hemoglobin A1c 6.2 % (3.8-5.6)
[2023-02-01 18:42] LABS: ALB/GLOB Ratio 0.8 RATIO (0.9-2.4); AST(SGOT) 20 U/L (15-37); Alanine Aminotransfer ALT/SGPT 23 U/L (16-61); Albumin, Serum 2.9 g/dL (3.2-5.0); Alkaline Phosphatase 56 U/L (45-117); Anion Gap 4 (5-15); BUN 16 mg/dL (7-18); Chloride 102 mmol/L (98-107); Creatinine, Serum 1.14 mg/dL (0.70-1.30); EST Glomerular Filtration Rate 70 mL/min (>60); Est Glom Filt Rate - Afr Amer 84 mL/min (>60); Globulin 3.7 g/dL (2.2-4.2); Glucose 169 mg/dL (74-106); Potassium 3.6 mmol/L (3.5-5.1); Protein, Total 6.6 g/dL (6.4-8.2); Sodium Level 137 mmol/L (136-145); Thyroid Stim Hormone (TSH) 1.02 uIU/mL (0.358-3.74)
== END | disposition home or self-care (01) ==
LOC: MFPLAB 15:06
PROVIDERS: PCP Family Medicine; Visit Provider Family Medicine
DX: E11.9 Type 2 diabetes mellitus without complications (principal); N17.9 Acute kidney failure, unspecified; E03.9 Hypothyroidism, unspecified
CPT/HCPCS: 36415; 80053; 82306; 83036; 84443

== ENCOUNTER 2023-03-10 11:11 | Emergency (ER) | payer MEDICAID, SELFPAY ==
[2023-03-10] VITALS (8 sets, daily range): BP systolic 140–229; BP diastolic 96–120; PULSE 53–67; RESP 16; TEMP 36.2–36.6; O2SAT 97–98; BMI 33.1
--- NOTE | 2023-03-10 11:39 | EKG12_ITS ---
Test Reason : ABNL LABS Blood Pressure : / mmHG Vent. Rate : 064 BPM Atrial Rate : 064 BPM P-R Int : 216 ms QRS Dur : 088 ms QT Int : 420 ms P-R-T Axes : 054 -18 080 degrees QTc Int : 433 ms Sinus rhythm with 1st degree A-V block Nonspecific ST and T wave abnormality Abnormal ECG Confirmed by YFN LUDWIG, VIRGINIE ([id number]), marketing editor BLADIMIR HERNANDEZ ([id number]) on 03/11/2023 9:58:50 AM Referred By: ANGUS Confirmed By:VIRGINIE COULTER MD
--- NOTE | 2023-03-10 11:39 | CT_ITS ---
STUDY: CT ABDOMEN AND PELVIS WITHOUT CONTRAST REASON FOR EXAM: Male, 57 years old. Prostate cancer, acute renal failure RADIATION DOSAGE (If Supplied By Facility): CTDIvol = ( 13.27 ) mGy, DLP = ( 716.33 ) mGycm TECHNIQUE: Transaxial images were obtained from the dome of the diaphragm to the symphysis pubis without oral contrast, and without intravenous contrast. Sagittal and coronal images were reconstructed. Individualized dose optimization techniques were used for this CT. COMPARISON: Comparison is made with prior study of November 02, 2022. FINDINGS: The visualized lung bases are unremarkable. Coronary artery calcification. Normal liver. There are multiple gallstones. Normal spleen. Normal pancreas. I suspect a 1.2 cm adenoma in the crux of the left adrenal gland. Moderate degree of bilateral hydronephrosis. There is an 8.5 mm calculus in the lower pole calyx of the right kidney. Normal visualized stomach. Normal small intestine. Normal colon. The appendix is visualized and appears normal. There is scattered atherosclerotic calcification of the abdominal aorta, without a demonstrated aneurysm. Normal inferior vena cava. There is retroperitoneal lymphadenopathy with enlarged nodes greater than 10-15mm in the short axis. Diffuse bladder wall thickening although the bladder is not completely distended at this time. Progressive pelvic lymphadenopathy. Increased markings within the pelvic fat suggestive of a pelvic congestion. There is a small umbilical hernia containing fat. Small bilateral inguinal hernias containing fat. Bilateral inguinal lymphadenopathy. There are diffuse degenerative changes of the visualized lumbar spine. CT/Abdomen/Pelvis without Cont IMPRESSION: Moderate degree of bilateral hydronephrosis with enlarged retroperitoneal and pelvic lymphadenopathy progressive as compared to prior study. Contracted thick-walled urinary bladder. Pelvic congestion. Multiple small gallstones. Electronically Signed: Alfredo Lobo MD at 12:44 EDT ,
--- NOTE | 2023-03-10 11:44 | ED.RN ---
dr kaufman at bedside. pt bladder scanned per order and was 0 with no bladder distention shown.
[2023-03-10] MEDS: hydrALAZINE 20 MG/ML Vial IV (11:54)
[2023-03-10] MEDS: 0.9% Normal Saline 1,000 ML 150 ML IV (11:55)
--- NOTE | 2023-03-10 12:03 | EX.ED.DYSGE1 ---
HPI History of Present Illness Chief Complaint: Abn Labs Informant: patient Narrative Narrative: Patient is a 57-year-old male with history of prostate cancer, hypothyroid, hypertension, hyperlipidemia currently undergoing chemo therapy presenting from the [facility] center for acute renal failure. Patient had outpatient blood work today which showed a creatinine of 7.98. It was repeated and the repeat was 7.82. Potassium was normal. 3 weeks ago his creatinine was 1.58. He was sent to the emergency room for further evaluation. Patient denies any pain. He states he is continue to urinate and is actually urinated 3 times in the last hour. He notes that he has not been feeling well for the past few days and just been really tired. He is also had increase of his blood pressure over the past few weeks. His cancer has been complicated by urinary retention/hematuria with large clots and he is seeing a urologist at [facility], Dr. Lorenzo. Patient denies any pain or any episodes of back pain, chest pain or abdominal pain. notes that he was on 5 blood pressure medicines but he was taken off some. They note that they restart him on atenolol as it if he left over because his blood pressures have been so high at home. She shows me his blood pressure log and they have been around 170-180's systolic. [facility] Medical History Cancer related pain Chemotherapy management, encounter for Depression Diarrhea Dry skin Elevated PSA Elevated serum creatinine Essential (primary) hypertension Headache Hematuria Hyperlipidemia Hypokalemia Hypothyroidism Obesity Prostate cancer Type 2 diabetes mellitus Urinary retention Viral URI Home Medications multivitamin 1 each PO [facility] 04/04/19 [History Last Taken 03/10/23] atorvastatin 40 mg tablet 40 mg PO DAILY CHOLESTEROL 06/11/20 [History Last Taken 03/10/23] valsartan 320 mg tablet (Diovan) 320 mg PO DAILY BLOOD PRESSURE 06/11/20 [History Last Taken 03/10/23] cholecalciferol (vitamin D3) 125 mcg (5,000 unit) tablet 125 mcg PO DAILY SUPPLEMENT 05/19/22 [History Last Taken 03/10/23] green tea extract 500 mg capsule 500 mg PO DAILY SUPPLEMENT 05/19/22 [History Last Taken 03/10/23] spironolactone 25 mg tablet 25 mg PO DAILY BLOOD PRESSURE #30 tabs 06/10/22 [Rx Last Taken 03/10/23] tamsulosin 0.4 mg capsule (Flomax) 0.4 mg PO QHS PROSTATE 06/10/22 [History Last Taken 03/09/23] ferrous sulfate 325 mg (65 mg iron) tablet 325 mg PO DAILY SUPPLEMENT 10/20/22 [History Last Taken 03/10/23] finasteride 5 mg tablet 5 mg PO DAILY PROSTATE 11/02/22 [History Last Taken 03/10/23] leuprolide acetate (6 month) 45 mg (6 month) subcutaneous syringe (Eligard) 45 mg subcut [id number] PROSTATE CANCER 11/02/22 [History Last Taken Unknown] prednisone 5 mg tablet 5 mg PO BID STEROID #60 tabs 12/28/22 [Rx Last Taken 03/10/23] oxycodone-acetaminophen 5 mg-325 mg tablet (Percocet) 1 tab PO Q8H PRN PAIN 30 days #30 tabs 02/21/23 [Rx Last Taken 03/08/23] potassium chloride 20 mEq tablet,extended release 20 meq PO DAILY SUPPLEMENT 02/22/23 [History Last Taken 03/10/23] carvedilol 25 mg tablet (Coreg) 25 mg PO BID HEART 03/10/23 [History Last Taken 03/10/23] levothyroxine 100 mcg tablet 100 mcg PO DAILY THYROID 03/10/23 [History Last Taken 03/10/23] Allergy/AdvReac Type Severity Reaction Status Date / Time No Known Allergies Allergy Verified 03/10/23 11:12 Family History Brother Prostate cancer Mother Cancer Other Hx of tonsillectomy Surgical History H/O prostate biopsy History of transurethral resection of prostate (2019) History of vasectomy S/P tonsillectomy Social History Smoking Status: Current every day smoker tobacco type: cigarettes alcohol intake: never substance use type: does not use caffeine: Yes Type: carbonated beverages Number of servings: 2 and tea Number of servings: 2 ROS ROS ED ROS Narrative Increased fatigue, sleeping Constitutional Constitutional ED: Denies chills or fever(s) Cardiovascular Cardiovascular: Denies chest pain or palpitations Respiratory/Chest Respiratory/Chest: Denies cough or dyspnea Gastrointestinal Gastrointestinal: Denies abdominal pain, nausea or vomiting Genitourinary Genitourinary ED: Denies dysuria, hematuria or urinary frequency Musculoskeletal Musculoskeletal: Denies arthralgias or myalgias Integumentary Denies rash Neurologic Neurologic: Reports weakness; Denies headache(s) Psychiatric Psychiatric: Denies anxiety Hematologic/Lymphatic Hematologic/Lymphatic: Denies easy bleeding or easy bruising EXAM Physical Exam Const Vital Signs: 03/10/23 11:12 03/10/23 11:22 03/10/23 13:36 Temperature 97.2 F L Temperature Source Temporal Pulse Rate 53 L Respiratory Rate 16 Respiratory Effort Normal Non-Labored Respiratory Pattern Normal Blood Pressure 229/120 H 200/112 H Blood Pressure Mean 156 141 Pulse Ox 98 03/10/23 14:11 03/10/23 15:00 03/10/23 14:30 Temperature Temperature Source Pulse Rate 63 67 Respiratory Rate 16 Respiratory Effort Respiratory Pattern Blood Pressure 204/117 H 153/100 H 203/110 H Blood Pressure Mean 146 117 141 Pulse Ox 97 Positive well nourished and well developed Constitutional Narrative: Chronically ill-appearing General Appearance ED: well developed, NAD and pallor HEENT Reports moist mucous membranes Eyes PERRL and EOMs intact bilaterally Neck supple and no JVD Chest Wall inspection of chest normal and palpation of chest normal Resp normal respiratory effort and clear to auscultation bilaterally Cardio regular rate, regular rhythm and no murmurs GI normal to inspection, nondistended, normoactive bowel sounds, non-tender and non-distended GI Narrative: No palpable bladder mass Extremity normal to inspection Neuro oriented x3 Sensorium / Orientation: alert Motor Exam: general weakness Psych mental status grossly normal Skin no rashes or lesions noted and no wounds General Skin Exam: pallor MDM MDM MDM Narrative Medical decision making narrative: Patient is evaluated for acute renal failure. I did review patient's outpatient labs from this morning including his CBC and his BMP. Patient is relatively asymptomatic otherwise. He is quite hypertensive in the emergency room and this is confirmed with a manual blood pressure. Blood pressures are in the 200s with an elevated diastolic. Concerned if he has an obstructive process is causing his renal failure versus hypertensive emergency. He does not have encephalopathy or headache. He is not any focal neurologic deficits. Is not have any chest pain. EKG is obtained which does not show findings consistent with ACS but is abnormal. Not having any significant pain to explain his hypertension. Patient is given 20 mg IV hydralazine for blood pressure with no significant proven. He is mildly bradycardic in the ER so we will defer labetalol. Patient started on a Cardene drip. Bladder scan does not show any significant urine in the bladder. Urinalysis is more consistent with contamination and he does have some red blood cells however I suspect that is more secondary to his cancer. CT flank study does show moderate degree of bilateral hydronephrosis with enlarged retroperitoneal and pelvic lymphadenopathy which is progressive compared to prior studies as well as a contracted thick-walled urinary bladder. Question if he would benefit from nephrostomy tubes. As patient's urologist is over at [facility] and family expresses that they have had BX. Is our hospital they are requesting transfer to [facility]. I feel that this is appropriate as he also likely will need interventional radiology and he is quite a complex patient. I did discuss with the oncology, Dr. Molina, who states that with the patient had dehydration event such as GI upset his chemotherapy which he received 3 weeks ago should not have affected his kidneys as not renal toxic. Case is discussed with hospitalist at [facility], Dr. García, who does accept the patient. As he is on a Cardene drip he will go to either CVU. Patient does have adequate blood pressure control with a Cardene drip. Is actually down titrating the emergency room. Patient does develop back and neck pain which she states is associated with being in the bed. He is given morphine and then Dilaudid for pain control. While patient does have acute renal failure he does not require emergent dialysis as he does not have signs of flash pulm edema, overt fluid overload and is not hyperkalemic. EKG is not consistent with hyperkalemia either. Lab Data Attestation: I reviewed the patient's lab results. Labs: Laboratory Results - last 24 hr 03/10/23 13:45 Urine Color Red Urine Clarity Sl. Cloudy Urine pH 9.0 Ur Specific [place] 1.015 Urine Protein 100 H Urine Glucose (UA) Normal Urine Ketones 5 H Urine Occult Blood 250 H Urine Nitrite Negative Urine Bilirubin Negative Urine Urobilinogen Normal Ur Leukocyte Esterase 25 H Urine RBC 25-50 SEEN Urine WBC 0-5 SEEN Ur Squamous Epith Cells 5-10 SEEN Urine Bacteria 1+ Urine Mucus 0 SEEN Radiography Diagnostic Testing: Clinical Impression(s) from Imaging Studies Abdomen/Pelvis CT 03/10/23 11:39 IMPRESSION: Moderate degree of bilateral hydronephrosis with enlarged retroperitoneal and pelvic lymphadenopathy progressive as compared to prior study. Contracted thick-walled urinary bladder. Pelvic congestion. Multiple small gallstones. 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, Discussing w/Consultants and Arranging Admission or Transfer Discharge Plan Triage Chief Complaint: Abn Labs ED Provider: Diana Pham Dx/Rx/DC Orders Clinical Impression: Hypertensive emergency, Prostate cancer, Acute renal failure, Bilateral hydronephrosis Prescriptions: No Action valsartan [Diovan] 320 mg tablet 320 mg PO DAILY atorvastatin 40 mg tablet 40 mg PO DAILY ferrous sulfate 325 mg (65 mg iron) tablet 325 mg PO DAILY potassium chloride 20 mEq tablet extended release 20 meq PO DAILY finasteride 5 mg tablet 5 mg PO DAILY Eligard (6 month) 45 mg syringe 45 mg subcut [id number] prednisone 5 mg tablet 5 mg PO BID Qty: 60 2RF multivitamin 1 EACH tablet 1 each PO QHS levothyroxine 100 mcg tablet 100 mcg PO DAILY carvedilol [Coreg] 25 mg tablet 25 mg PO BID cholecalciferol (vitamin D3) 125 mcg (5,000 unit) tablet 125 mcg PO DAILY green tea extract 500 mg capsule 500 mg PO DAILY tamsulosin [Flomax] 0.4 mg capsule 0.4 mg PO QHS spironolactone 25 mg tablet 25 mg PO DAILY Qty: 30 11RF oxycodone-acetaminophen [Percocet] 5-325 mg tablet 1 tab PO Q8H PRN (Reason: PAIN ) 30 Days Qty: 30 0RF Primary Care Provider: Niki Kaur Referrals: Niki Kaur DO [Primary Care Provider] - Disposition Disposition: Acute Care Hospital Discharge Location: [facility]
[2023-03-10 13:54] LABS: Mucous, Urine 0 SEEN /hpf (<or=2+)
[2023-03-10] MEDS: Nicardipine HCl-0.9% Sod Chlor 20 MG/200 ML IV.SOLN 50 MG IV (14:11)
[2023-03-10 14:13] LABS: Color, Urine Red (Yellow); Glucose, Dipstick Normal (Normal); Ketone-Dipstick 5 mg/dl (Negative); Leukocyte Esterase-Dipstick 25 /ul (Negative); Nitrite-Dipstick Negative (Negative); Occult Blood-Urine 250 /ul (Negative); Protein-Dipstick 100 mg/dl (Negative); Specific Gravity, Urine 1.015 (1.002-1.030); Urine Bilirubin Dipstick Negative (Negative); Urine Clarity Sl. Cloudy (Clear); Urine Urobilinogen Normal (Normal)
[2023-03-10 14:30] LABS: Bacteria 1+ /hpf (None Seen); Red Blood Cells-Urine 25-50 SEEN /hpf (0-5); Squamous Epithelial Cells - UA 5-10 SEEN /hpf (0-5); White Blood Cells 0-5 SEEN /hpf (0-5)
[2023-03-10] MEDS: morphine 8 MG/ML Syringe IV (14:51)
[2023-03-10] MEDS: HYDROmorphone 0.5 MG/0.5 ML SYRINGE IV (16:01)
--- NOTE | 2023-03-10 16:41 | NURSING ---
REPORT GIVEN TO EMS. TRANSFER PACKET COMPLETED. HELPED WITH URINAL. CARDINE DC'D PER ORDER FOR GOAL RATE SBP. IV SL'D FOR TRANSPOT. PT RESTING BETTER AFTER IV DILAUDID
== END 2023-03-10 16:47 | disposition short-term general hospital (02) ==
PROVIDERS: Emergency Provider Emergency Medicine; PCP Family Medicine; Visit Provider Emergency Medicine
DX: N17.9 Acute kidney failure, unspecified (principal); C61 Malignant neoplasm of prostate; E11.9 Type 2 diabetes mellitus without complications; E78.5 Hyperlipidemia, unspecified; N13.30 Unspecified hydronephrosis; I16.1 Hypertensive emergency; I10 Essential (primary) hypertension; Z92.21 Personal history of antineoplastic chemotherapy; Z79.899 Other long term (current) drug therapy; E03.9 Hypothyroidism, unspecified; F17.210 Nicotine dependence, cigarettes, uncomplicated; M54.9 Dorsalgia, unspecified; D64.9 Anemia, unspecified
CPT/HCPCS: 80048; 74176; 80053; 81001; 84153; 85025; 87506; 93005; 96361; 96365; 96366; 96375; 99284; A4216